=== PATIENT | female | born 1950 | race Two or more races ===

== ENCOUNTER 2017-12-04 18:24 | Emergency (ER) | payer OTHER | END 2017-12-04 19:47 | disposition home or self-care (01) | LOC: ER 18:24 | DX: K04.7 Periapical abscess without sinus (principal); Z88.5 Allergy status to narcotic agent | CPT/HCPCS: 99283 ==

== ENCOUNTER 2018-03-29 21:15 | Emergency (ER) | payer OTHER | END 2018-03-29 22:20 | disposition home or self-care (01) | LOC: ER 21:15 | DX: K04.7 Periapical abscess without sinus (principal) | CPT/HCPCS: 99283 ==

== ENCOUNTER 2019-07-30 01:30 | Inpatient (IN) | payer MEDICAID, OTHER ==
[~2019-07-30] VITALS: Ht 160 cm; Wt 67.1 kg
[~2019-07-30 01:30] MED LIST: AMOX500C PO; AMOX875T PO; ASPI-630 PO; BIMA2.5D EACHEYE; DIVA500T2 PO; DIVA500T4 PO; DOXY100C2 PO; HYDR-2145 PO; LANS30CA66 PO; MELO15TA6 PO; NADO20TA PO; NORT25CA PO; NORT25CA3 PO; NORT50CA PO; OXYC15TA PO; OXYC1TAB8 PO; PROP40TA PO
[2019-07-30 02:17] LABS: BASO # 0.1 x10^3/uL (0.0-0.2); BASO % 1 % (0-3); EOS # 0.1 x10^3/uL (0.0-0.7); EOS % 1 % (0-3); HEMATOCRIT 36.6 % (36.0-47.0); HEMOGLOBIN 12.4 g/dL (12.0-15.5); LYMPH # 1.7 x10^3/uL (1.0-4.8); LYMPH % 18 % (24-48); MEAN CORPUSCULAR HEMOGLOBIN 33 pg (25-35); MEAN CORPUSCULAR HGB CONC 34 g/dL (31-37); MEAN CORPUSCULAR VOLUME 97 fL (79-100); MONO # 0.5 x10^3/uL (0.0-1.1); MONO % 5 % (0-9); NEUT % 75 % (31-73); PLATELET COUNT 388 x10^3/uL (140-400); RED BLOOD COUNT 3.77 x10^6/uL (3.50-5.40); RED CELL DISTRIBUTION WIDTH 14.5 % (11.5-14.5); WHITE BLOOD COUNT 9.3 x10^3/uL (4.0-11.0)
[2019-07-30 02:27] LABS: CALCIUM 9.6 mg/dL (8.5-10.1); CREATININE 0.8 mg/dL (0.6-1.0); GFR 70.9; POTASSIUM 3.7 mmol/L (3.5-5.1)
[2019-07-30 02:31] LABS: ACETAMIN < 2 mcg/ml (10-30); ETHANOL < 10 mg/dL (0-10); SALIC < 2.8 mg/dL (2.8-20.0)
[2019-07-30 02:34] LABS: ALBUMIN 3.4 g/dL (3.4-5.0); ALBUMIN/GLOBULIN RATIO 0.8 (1.0-1.7); TOTAL BILIRUBIN 0.3 mg/dL (0.2-1.0); TOTAL PROTEIN 7.6 g/dL (6.4-8.2)
[2019-07-30 03:06] LABS: BILIRUBIN,URINE SMALL (NEG); CLARITY,URINE CLOUDY; COLOR,URINE YELLOW; NITRITE,URINE NEGATIVE (NEG); PROTEIN,URINE NEGATIVE (NEG-TRACE)
[2019-07-30 03:18] LABS: BACTERIA,URINE MODERATE /HPF (0-FEW); RBC,URINE 0 /HPF (0-2); SQUAMOUS EPITHELIAL CELL,UR FEW /LPF
[2019-07-30 03:35] LABS: BARBITURATES NEG (NEG); BENZODIAZEPINES NEG (NEG); CANNABINOIDS NEG (NEG); COCAINE NEG (NEG); METHADONE NEG (NEG); OPIATES POS (NEG); PHENCYCLIDINE NEG (NEG)
[2019-07-30 03:38] LABS: AMPHETAMINE/METHAMPHETAMINE NEG (NEG)
--- NOTE | 2019-07-30 05:47 | PHYS DOC ---
Past Medical History Past Medical History: Hypertension, Migraines Additional Past Medical Histor: RA,SPINAL STENOISIS,CARPELL DONN,CERVICALG IA,DYSHAGIA (KEL PATHAK Jr., DO) Past Surgical History: Other Additional Past Surgical Histo: BACK (KEL PATHAK Jr., DO) Alcohol Use: None Drug Use: None (KEL PATHAK Jr., DO) Adult General Chief Complaint Chief Complaint: OVERDOSE HPI HPI Patient is a 69-year-old female who presents after reportedly taking an overdose of her muscle relaxant. Patient states that she was trying to harm herself and has had thoughts of taking her life, stating that she doesn't want to live anymore because of chronic pain. She also indicates that she recently ran out of her oxycodone which is making her even more depressed. Family indicates that patient has been making similar comments regarding taking her life for a while now. Patient states that she took a total of 6 of her muscle relaxants and ad mits that she didn't think that it would cause any harm however.[] (KEL PATHAK Jr., DO) Review of Systems Review of Systems Constitutional: Denies fever or chills [] Respiratory: Denies cough or shortness of breath [] Cardiovascular: No additional information not addressed in HPI [] GI: Denies abdominal pain, nausea, vomiting or diarrhea [] Musculoskeletal: Complains of chronic back pain [] Neurologic: Denies headache, focal weakness or sensory changes [] Psychiatric: Admits to depression and suicidal ideation[] All other systems were reviewed and found to be within normal limits, except as documented in this note. (KEL PATHAK Jr., DO) Current Medications Current Medications Current Medications Medications (Trade) Dose Ordered Sig/Alisha Start Time Stop Time Status Last Admin Dose Admin Oxycodone/ Acetaminophen (Percocet 5/325) 1 tab 1X ONCE 07/30/19 11:00 07/30/19 11:01 DC 07/30/19 11:11 1 TAB (VÍCTOR JUÁREZ MD) Allergies Allergies Allergies Coded Allergies Type Severity Reaction Last Updated Verified No Known Drug Allergies 07/30/19 No (VÍCTOR JUÁREZ MD) Physical Exam Physical Exam Constitutional: Well developed, well nourished, no acute distress, non-toxic appearance. [] HENT: Normocephalic, atraumatic, bilateral external ears normal, oropharynx moist, no oral exudates, nose normal. [] Eyes: PERRLA, EOMI, conjunctiva normal, no discharge. [] Neck: Normal range of motion, no tenderness, supple, no stridor. [] Cardiovascular: Regular rate and rhythm[] Lungs & Thorax: Bilateral breath sounds clear to auscultation [] Abdomen: Bowel sounds normal, soft, no tenderness. [] Skin: Warm, dry, no erythema, no rash. [] Extremities: No tenderness, no cyanosis, no clubbing, ROM intact. [] Neurologic: Alert and oriented X 3, no focal deficits noted. [] Psychologic: Flattened affect with depressed mood. [] (KEL PATHAK Jr. DO) Current Patient Data Vital Signs Vital Signs Date Time Temp Pulse Resp B/P (MAP) Pulse Ox O2 Delivery O2 Flow Rate FiO2 07/30/19 17:28 60 13 111/66 (81) 96 Room Air 07/30/19 12:28 98.3 98.3 (VÍCTOR JUÁREZ MD) Lab Values Laboratory Tests Test 07/30/19 02:08 07/30/19 02:58 White Blood Count 9.3 x10^3/uL (4.0-11.0) Red Blood Count 3.77 x10^6/uL (3.50-5.40) Hemoglobin 12.4 g/dL (12.0-15.5) Hematocrit 36.6 % (36.0-47.0) Mean Corpuscular Volume 97 fL (79-100) Mean Corpuscular Hemoglobin 33 pg (25-35) Mean Corpuscular Hemoglobin Concent 34 g/dL (31-37) Red Cell Distribution Width 14.5 % (11.5-14.5) Platelet Count 388 x10^3/uL (140-400) Neutrophils (%) (Auto) 75 % (31-73) H Lymphocytes (%) (Auto) 18 % (24-48) L Monocytes (%) (Auto) 5 % (0-9) Eosinophils (%) (Auto) 1 % (0-3) Basophils (%) (Auto) 1 % (0-3) Neutrophils # (Auto) 7.0 x10^3/uL (1.8-7.7) Lymphocytes # (Auto) 1.7 x10^3/uL (1.0-4.8) Monocytes # (Auto) 0.5 x10^3/uL (0.0-1.1) Eosinophils # (Auto) 0.1 x10^3/uL (0.0-0.7) Basophils # (Auto) 0.1 x10^3/uL (0.0-0.2) Sodium Level 144 mmol/L (136-145) Potassium Level 3.7 mmol/L (3.5-5.1) Chloride Level 108 mmol/L (98-107) H Carbon Dioxide Level 27 mmol/L (21-32) Anion Gap 9 (6-14) Blood Urea Nitrogen 25 mg/dL (7-20) H Creatinine 0.8 mg/dL (0.6-1.0) Estimated GFR (Cockcroft-Gault) 70.9 BUN/Creatinine Ratio 31 (6-20) H Glucose Level 133 mg/dL (70-99) H Calcium Level 9.6 mg/dL (8.5-10.1) Total Bilirubin 0.3 mg/dL (0.2-1.0) Aspartate Amino Transferase (AST) 10 U/L (15-37) L Alanine Aminotransferase (ALT) 16 U/L (14-59) Alkaline Phosphatase 133 U/L (46-116) H Total Protein 7.6 g/dL (6.4-8.2) Albumin 3.4 g/dL (3.4-5.0) Albumin/Globulin Ratio 0.8 (1.0-1.7) L Salicylates Level < 2.8 mg/dL (2.8-20.0) L Salicylate Last Dose Date Unk Salicylate Last Dose Time Unk Acetaminophen Level < 2 mcg/ml (10-30) L Acetaminophen Last Dose Date Unk Acetaminophen Last Dose Time Unk Ethyl Alcohol Level < 10 mg/dL (0-10) Urine Collection Type Unknown Urine Color Yellow Urine Clarity Cloudy Urine pH 6.0 Urine Specific [place] 1.025 Urine Protein Negative mg/dL (NEG-TRACE) Urine Glucose (UA) Negative mg/dL (NEG) Urine Ketones (Stick) Trace mg/dL (NEG) Urine Blood Negative (NEG) Urine Nitrite Negative (NEG) Urine Bilirubin Small (NEG) Urine Urobilinogen Dipstick 1.0 mg/dL (0.2 mg/dL) Urine Leukocyte Esterase Small (NEG) Urine RBC 0 /HPF (0-2) Urine WBC 5-10 /HPF (0-4) Urine Squamous Epithelial Cells Few /LPF Urine Bacteria Moderate /HPF (0-FEW) Urine Mucus Mod /LPF Urine Opiates Screen Pos (NEG) Urine Methadone Screen Neg (NEG) Urine Barbiturates Neg (NEG) Urine Phencyclidine Screen Neg (NEG) Urine Amphetamine/Methamphetamine Neg (NEG) Urine Benzodiazepines Screen Neg (NEG) Urine Cocaine Screen Neg (NEG) Urine Cannabinoids Screen Neg (NEG) Urine Ethyl Alcohol Neg (NEG) Laboratory Tests 07/30/19 02:08 Laboratory Tests 07/30/19 02:08 (VÍCTOR JUÁREZ MD) EKG EKG [] (KEL PATHAK Jr., DO) Radiology/Procedures Radiology/Procedures [] (KEL PATHAK Jr., DO) Course & Med Decision Making Course & Med Decision Making Pertinent Labs and Imaging studies reviewed. (See chart for details) Patient moved to room upon arrival was evaluated by ER medical staff after which a mental health workup has been completed. Poison control was also contacted regarding overdose. Patient's mental health workup has returned and patient has been medically cleared for PAT consult. At this time, patient is agreeing to psychiatric admission and we are awaiting bed placement. Patient is being signed out to the oncoming ER physician, Dr. Juárez at 6:00 AM. (KEL PATHAK Jr., DO) Course & Med Decision Making Patient care transferred to ga at 0600. Patient was, and cooperative and asking for pain medication because of chronic pain. Patient was not a candidate for admission to [facility] mental units because of the insurance problem. There was not available geriatric mental bed in [facility]. Plan to admit patient for observation at this hospital and evaluation by PAT team tomorrow and deciding about placement. (VÍCTOR JUÁREZ MD) Dragon Disclaimer Dragon Disclaimer This electronic medical record was generated, in whole or in part, using a voice recognition dictation system. (KEL PATHAK Jr., DO) Departure Departure Impression: Primary Impression: Suicidal ideation Additional Impressions: Drug overdose, intentional Depression Chronic pain Disposition: 09 ADMITTED INPATIENT (at 1724) Admitting Physician: AMIE (Dr. Coon accepted admission at 1724) (VÍCTOR JUÁREZ MD) Condition: IMPROVED Referrals: NO PCP (PCP) Problem Qualifiers Additional Impressions: Drug overdose, intentional Encounter type: initial encounter Qualified Codes: T50.902A - Poisoning by unspecified drugs, medicaments and biological substances, intentional self-harm, initial encounter Depression Depression Type: unspecified Qualified Codes: F32.9 - Major depressive disorder, single episode, unspecified Chronic pain Chronic pain type: other chronic pain Qualified Codes: G89.29 - Other chronic pain KEL PATHAK Jr., DO Jul 30, 2019 05:47 VÍCTOR JUÁREZ MD Jul 30, 2019 17:48
[2019-07-30] MEDS ORDERED: oxyCODONE/APAP 5/325 1 TAB TABLET PO ONE ×2 (06:30→11:00)
[2019-07-30] MEDS ORDERED: oxyCODONE IR 5 MG TABLET PO PRN (18:45)
[2019-07-30] MEDS: oxyCODONE/APAP 10/325 1 TAB TABLET PO SCH (18:52)
[2019-07-30] MEDS ORDERED: DULO30CA2 PO (20:06)
[2019-07-30] MEDS ORDERED: PROP40TA PO (20:06)
[2019-07-30] MEDS ORDERED: TIZA4TAB2 PO (20:06)
[2019-07-30] MEDS ORDERED: OXYC1TAB22 PO (20:06)
[2019-07-30] MEDS ORDERED: POLY17PO29 PO (20:06)
[2019-07-30 20:14] VITALS: BP 139/77
--- NOTE | 2019-07-30 20:59 | NUR ---
Pt arrived to the unit at approximately after 1930 via gurney from the ED. Pt is currently being admitted as a SI with this RN as a 1:1 by bedside. Pt's room was checked and all extra equipment was removed from room based on SI protocol. Pt's belongings was checked and was placed in medication room. All questions and concerns regarding pt's POC was addressed and answered. Pt voiced that she was depressed and did wanted to end her life before being brought into the ED, but at this time, she have no interest in ending her life anymore. Pt is however still tearful when asked about her current concerns and medical conditions. Pt was made comfortable in bed. Will continue to monitor pt closely.
[2019-07-30] MEDS ORDERED: AMOXICILLIN PO SCH (21:00)
[2019-07-30] MEDS ORDERED: NORTRIPTYLINE 25 MG CAPSULE PO SCH (21:00)
[2019-07-30] MEDS ORDERED: NON FORMULARY ITEM (Doxycycline Hyclate 1 CAP) PO SCH (21:00)
[2019-07-30] MEDS ORDERED: NON FORMULARY ITEM (Amoxicillin 1 TAB) PO SCH (21:00)
[2019-07-30] MEDS: LATANOPROST 0.005% OPHTH SOLUTION 2.5ML BOTTLE. OU SCH (21:38)
[2019-07-30] MEDS: tiZANidine 4 MG TABLET. PO SCH (21:38)
[2019-07-30] MEDS: DIVALPROEX DELAYED RELEASE 500 MG TABLET.DR. PO SCH (21:38)
[2019-07-30] MEDS: PROPRANOLOL 40 MG TABLET. PO SCH (21:39)
[2019-07-30] MEDS: POLYETHYLENE GLYCOL 3350 17 GM PACKET. PO SCH (21:39)
--- NOTE | 2019-07-30 21:54 | HP ---
ADMIT DATE: 07/30/2019 CHIEF COMPLAINT: Overdose. HISTORY OF PRESENT ILLNESS: The patient is a pleasant 69-year-old female who took Zanaflex. She states she has been depressed because her back hurts. She apparently had back surgery at [place] facility [place] in [facility]. Since then, she has had worse pain. She states the one thing that seems to help is oxycodone, but she denies that she is dependent on it. She does not want to get high. She has associated weakness. I discussed the case with ER physician. She probably needs to be inpatient psych, but they would not take her currently. We are going to get her medically cleared. We are going to admit the patient, give her some p.r.n. pain meds and probably get her to a Psych Unit here in a day or two. PAST MEDICAL HISTORY: Hypertension, migraines, spinal surgery, carpal tunnel surgery, dysphagia, depression. ALLERGIES: None. FAMILY HISTORY: Diabetes. SOCIAL HISTORY: She does not drink, smoke or take drugs. MEDICATIONS: Reviewed, please refer to the MRAD. REVIEW OF SYSTEMS: GENERAL: No history of weight change, weakness or fevers. SKIN: No bruising, hair changes or rashes. EYES: No blurred, double or loss of vision. NOSE AND THROAT: No history of nosebleeds, hoarseness or sore throat. HEART: No history of palpitations, chest pain or shortness of breath on exertion. LUNGS: Denies cough, hemoptysis, wheezing or shortness of breath. GASTROINTESTINAL: Denies changes in appetite, nausea, vomiting, diarrhea or constipation. GENITOURINARY: No history of frequency, urgency, hesitancy or nocturia. NEUROLOGIC: Denies history of numbness, tingling, tremor or weakness. PSYCHIATRIC: She complains of depression. ENDOCRINE: No history of heat or cold intolerance, polyuria or polydipsia. EXTREMITIES: Denies muscle weakness, joint pain, pain on walking or stiffness. MUSCULOSKELETAL: She complains of back pain. PHYSICAL EXAMINATION: VITALS: Within normal limits and are stable. GENERAL: No apparent distress. Alert and oriented. HEENT: Head is normocephalic, atraumatic, pupils were equally round and reactive to light and accommodation. NECK: Supple, no JVD, no thyromegaly was noted. LUNGS: Clear to auscultation in all lung hansen without rhonchi or wheezing. HEART: RRR, S1, S2 present. Peripheral pulses intact, no obvious murmurs were noted. ABDOMEN: Soft, nontender. Positive bowel sounds no organomegaly, normal bowel sounds. EXTREMITIES: Without any cyanosis, clubbing, or edema. Pedal pulses intact, Homans sign is negative. NEUROLOGIC: Normal speech, normal tone. A and O x3, moves all extremities, no obvious focal deficits. PSYCHIATRIC: She seems depressed. SKIN: No ulcerations or rashes, good skin turgor, no jaundice. VASCULAR: Good capillary refill, neurovascular bundle appears to be intact. LABORATORY DATA: White count is 9. Electrolytes are normal. ASSESSMENT AND PLAN: Depression with ingestion of Zanaflex. Clinically, the patient is stable currently. We will go ahead and get most of her home meds going. Consult the psychiatric assessment team. PT, OT, DVT prophylaxis. Full code. VITOR ELIZABETH DO DR: BOLIVAR/eladio JOB#: [id number] / [id number]
[2019-07-30 22:45] VITALS: BP 144/75
[2019-07-31 07:00] VITALS: BP 116/56
[2019-07-31] MEDS: PANTOPRAZOLE 40 MG TABLET.DR. PO SCH (08:53)
[2019-07-31] MEDS: hydroCHLOROthiazide 25 MG TABLET PO SCH (08:54)
[2019-07-31] MEDS: PROPRANOLOL 40 MG TABLET. PO SCH ×2 (08:54→20:40)
[2019-07-31] MEDS: ASPIRIN CHEWABLE 81 MG TABLET. PO SCH (08:54)
[2019-07-31] MEDS: DULoxetine HCL 30 MG CAPSULE.DR PO SCH (08:54)
[2019-07-31] MEDS: oxyCODONE/APAP 10/325 1 TAB TABLET PO SCH ×4 (08:55→20:40)
[2019-07-31] MEDS: POLYETHYLENE GLYCOL 3350 17 GM PACKET. PO SCH ×3 (08:55→20:38)
[2019-07-31] MEDS ORDERED: MELOXICAM 7.5 MG TABLET PO PRN (09:00)
[2019-07-31] MEDS ORDERED: METOPROLOL TART IMMED RELEASE 25 MG TABLET. PO SCH (09:00)
[2019-07-31 11:00] VITALS: BP 101/54
--- NOTE | 2019-07-31 12:55 | PDOC ---
PROGRESS NOTES History of Present Illness History of Present Illness ASSESSMENT AND PLAN: Depression with ingestion of Zanaflex. chronic pain syndrome gait instability HIGH FALL RISK L4-5 there is severe central stenosis from a combination of facet arthropathy and disc protrusion. 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 s/p neck surgery with fusion on 04/27/2018. 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 Marked soft tissue swelling and edema are seen within the prevertebral soft tissues. 2018 07/31 STATES she has been very depressed, but will not try to harm herself again, just gave up hope that she will ever get better, and free of pain, rates her pain at 10/10 now. also notes neck pain with rom has tried gabapentin without relief LUMBAR SURGERY WAS DONE BY DR PADMINI KNOWLES IN 2018 PLAN home meds except narcotics, use sparingly psychiatric assessment team. has seen PT, OT, DVT prophylaxis. Full code. ESR, IF ELEVATED MAY NEED MRI C/S NOW id consult/// RE HX DISKITIS CONSULT DR MARY AGUILAR, DR SCHWARZ X-RAY L/S, CONSIDER MRI L/S continue cymbalta MAY NEED SNF REHAB NEED RECENT RECORDS, [facility] 40 MIN PT EXAM, CHART REVIEW, > 50% OF TIME SPENT WITH EXAM, CHART REVIEW, PT CARE COORDINATION Vitals Vitals Vital Signs Date Time Temp Pulse Resp B/P (MAP) Pulse Ox O2 Delivery O2 Flow Rate FiO2 07/31/19 11:00 97.9 63 16 101/54 (70) 96 Room Air 97.9 Physical Exam Physical Exam HEENT: Head is normocephalic, atraumatic, pupils were equally round and reactive to light and accommodation. NECK: Supple, no JVD, no thyromegaly was noted. LUNGS: Clear to auscultation in all lung hansen without rhonchi or wheezing. HEART: RRR, S1, S2 present. Peripheral pulses intact, no obvious murmurs were noted. ABDOMEN: Soft, nontender. Positive bowel sounds no organomegaly, normal bowel sounds. EXTREMITIES: Without any cyanosis, clubbing, or edema. Pedal pulses intact, Homans sign is negative. NEUROLOGIC: Normal speech, normal tone. A and O x3, moves all extremities with difficulty, no obvious focal deficits. PSYCHIATRIC: She seems depressed. tearful affect SKIN: No ulcerations or rashes, good skin turgor, no jaundice. VASCULAR: Good capillary refill, neurovascular bundle appears to be intact. General: Alert, Oriented X3, Cooperative, moderate distress Heart: Regular rate, Normal S1, Normal S2 Lungs: Clear Abdomen: Soft Extremities: No cyanosis, No edema Skin: Other (tender about l3l4 space paralumbar) Labs LABS MR LUMBAR SPINE HISTORY: Low back pain with left leg radiculopathy at COMPARISON: None available Technique: Sagittal T2, sagittal STIR, and sagittal T1-weighted images were obtained. Additional axial T1 and T2 weighted imaging was also performed. FINDINGS: There is grade 1 anterolisthesis of L4 on L5. Alignment is otherwise within normal limits. No compression deformities are identified. Bone marrow signal is within normal limits. The conus terminates normally at the level of L1. Visualized intra-abdominal contents demonstrates bilateral renal cysts. At L5-S1 there is moderate right and mild left facet hypertrophy. This causes mass effect upon the descending right S1 nerve. The neural foramina are maintained. At L4-5 there is grade 1 degenerative anterolisthesis with advanced bilateral facet arthropathy. There is associated ligamentum flavum thickening and a broad-based disc protrusion. This results in severe central spinal stenosis. The neural foramina are maintained. At L3-4 there is mild central spinal stenosis from facet arthropathy and a small disc bulge. At L2-3 there is mild central spinal narrowing from facet arthropathy. Impression: At L4-5 there is severe central stenosis from a combination of facet arthropathy and disc protrusion. At L5-S1 there is facet arthropathy worse on the right which results in abutment of the descending right S1 nerve. Other less severe degenerative changes as above. MRI of the cervical spine without and with contrast 06/02/2018 CLINICAL HISTORY: Chronic neck pain. History of cervical spine surgery. TECHNIQUE: Unenhanced T1-weighted, T2-weighted and inversion recovery sagittal and gradient echo, T2-weighted and T1-weighted axial images of the cervical spine were obtained. After the intravenous administration of 5 cc of Gadavist, enhanced T1-weighted sagittal and axial images of the cervical spine were obtained. FINDINGS: Comparison is made to patient's outside MRI of the cervical spine dated 04/30/2018. There is straightening of the normal cervical lordosis. The patient is post anterior fusion using what appears to be an anterior plate, bone screws and bone graft material at C4-5 and C5-6. Since the previous examination increased signal intensity has developed within the remaining discs on the T2-weighted and inversion recovery images. Decreased signal intensity is seen on the T1-weighted images involving the marrow of the C4, C5 and C6 vertebral bodies. This demonstrates increased signal intensity the inversion recovery images. Enhancement is seen throughout these areas. These findings are concerning for discitis/osteomyelitis. Marked soft tissue swelling within the prevertebral soft tissues is noted. There is associated edema. A fluid collection is seen extending from the right anterior neck to the prevertebral soft tissues anterior to the level of the fusion. This measures 4.4 x 4.4 x 3.3 cm in AP, craniocaudal and transverse dimensions. This appears to have increased in size since the previous examination and is concerning for an abscess. Abnormal soft tissue signal intensity is seen within the anterior and posterior epidural space centered at the C4-5 and C5-6 levels. This demonstrates increased signal intensity on the T2-weighted images and enhances with contrast. This is consistent most likely with epidural phlegmon. Superimposed abscess/abscesses are not excluded. This contributes to moderate central spinal canal stenosis with moderate cord impingement at C4-5 and moderate to severe left greater than right central spinal canal stenosis at C5-6 with moderate to severe left greater than right cord impingement. This enhancement extends along the posterior epidural space superiorly to the C2-3 level and contributes to mild to moderate central spinal canal stenosis with mild cord impingement at C3-4 and extends inferiorly within the anterior and posterior epidural space through the C7-T1 level contributing to mild central spinal canal stenosis without evidence of cord impingement at C6-7. No definite area of abnormal signal intensity is seen involving the cervical spinal cord. Degenerative changes are seen involving the uncovertebral and facet joints throughout the cervical disc spaces. These result in moderate left neural foraminal stenosis at C6-7. IMPRESSION: 1. Post anterior fusion at C4-5 and C5-6. 2. Findings are seen concerning for discitis/osteomyelitis at C4-5 and C5-6. Marked soft tissue swelling and edema are seen within the prevertebral soft tissues. A fluid collection is seen extending from the right anterior neck to the prevertebral soft tissues at the level of the patient's fusion. This measures 4.4 cm in greatest diameter. It has increased in size since the previous examination and is concerning for an abscess. Abnormal soft tissue signal intensity is seen within the anterior and posterior epidural space centered at C4-5 and C5-6 which enhances with contrast. It is consistent most likely with epidural phlegmon. Superimposed abscess/abscesses are not excluded. This contributes to moderate central spinal canal stenosis with moderate cord impingement at C4-5 and moderate to severe left greater than right central spinal canal stenosis with moderate to severe left greater than right cord impingement at C5-6. This extends to the posterior epidural space superiorly at C2-3 and contributes to mild to moderate central spinal canal stenosis with mild cord impingement at C3-4 and extends inferiorly through the C7-T1 level contributing to mild central spinal canal stenosis without evidence of cord impingement at C6-7. These findings were discussed with the patient's nurse. Electronically signed by: Joseph Lynch MD (06/02/2018 2:58 PM) [id number] DICTATED and SIGNED BY: JOSEPH LYNCH MD DATE: 06/02/18 141 Assessment and Plan Assessmemt and Plan Problems Medical Problems: (1) Chronic pain Status: Acute (2) Depression Status: Acute (3) Drug overdose, intentional Status: Acute (4) Suicidal ideation Status: Acute * Discussion Factors Facilitating Goal Achievement * Motivation level * Prior level of function * Cognition * Response to training Problem List * Balance * Functional Mobility * ADL Status * Pain Pt/caregiver agree with plan of care * Yes Patient condition at conclusion of therapy * Pt in chair * Call light in reach * Phone in reach * PtIn no apparent distress * Pt denies further needs * RN/CLOTH CUTTER with patient Communicated Patient Care With (Name, Title) * JIE Chinchilla/Marcelina, PT Goal 1: Pt will tolerate functional activities for * 20min Goal 1 Position: * Seated * Standing Goal 2: Pt will be able to complete: * LE dressing w/ devices prn Goal 2 Equipment: * Long Handled Equipment Goal 2 Required Assistance Level * Independent Goal 3: Pt will be able to complete: * toilet transfer Goal 3 Required Assistance Level * Independent Goal 4 - Pt will be able to complete: * grooming at sink Goal 4 Equipment * Front Wheeled Walker Goal 4 Required Assistance Level * Independent Goal 5 - Pt. will be able to complete: * UE HEP as tolerates Goal 5 Required Assistance Level * Independent Goal 6 * Object retrieval safely w/ reachers and RW w/ supervision. Skilled interventions required to achieve goals * Activity roque. training * ADL training/education * Adaptive equip. training * Body mechanics training * Compensatory techniques * Functional mobility train * IADL Training * Transfer training for ADL Number of Days/Weeks for length of Stay, or Until Goals Met * 6x wk/2wks Discharge Recommendations * Home with Assistance * Home with Home Health Discharge Recommendation Comments * AD to be assessed, upgrade dc plan w/ progress Comment Review of Relevant I have reviewed the following items madiha (where applicable) has been applied. Labs Laboratory Tests Test 07/30/19 02:08 07/30/19 02:58 White Blood Count 9.3 x10^3/uL (4.0-11.0) Red Blood Count 3.77 x10^6/uL (3.50-5.40) Hemoglobin 12.4 g/dL (12.0-15.5) Hematocrit 36.6 % (36.0-47.0) Mean Corpuscular Volume 97 fL (79-100) Mean Corpuscular Hemoglobin 33 pg (25-35) Mean Corpuscular Hemoglobin Concent 34 g/dL (31-37) Red Cell Distribution Width 14.5 % (11.5-14.5) Platelet Count 388 x10^3/uL (140-400) Neutrophils (%) (Auto) 75 % (31-73) Lymphocytes (%) (Auto) 18 % (24-48) Monocytes (%) (Auto) 5 % (0-9) Eosinophils (%) (Auto) 1 % (0-3) Basophils (%) (Auto) 1 % (0-3) Neutrophils # (Auto) 7.0 x10^3/uL (1.8-7.7) Lymphocytes # (Auto) 1.7 x10^3/uL (1.0-4.8) Monocytes # (Auto) 0.5 x10^3/uL (0.0-1.1) Eosinophils # (Auto) 0.1 x10^3/uL (0.0-0.7) Basophils # (Auto) 0.1 x10^3/uL (0.0-0.2) Sodium Level 144 mmol/L (136-145) Potassium Level 3.7 mmol/L (3.5-5.1) Chloride Level 108 mmol/L (98-107) Carbon Dioxide Level 27 mmol/L (21-32) Anion Gap 9 (6-14) Blood Urea Nitrogen 25 mg/dL (7-20) Creatinine 0.8 mg/dL (0.6-1.0) Estimated GFR (Cockcroft-Gault) 70.9 BUN/Creatinine Ratio 31 (6-20) Glucose Level 133 mg/dL (70-99) Calcium Level 9.6 mg/dL (8.5-10.1) Total Bilirubin 0.3 mg/dL (0.2-1.0) Aspartate Amino Transf (AST/SGOT) 10 U/L (15-37) Alanine Aminotransferase (ALT/SGPT) 16 U/L (14-59) Alkaline Phosphatase 133 U/L (46-116) Total Protein 7.6 g/dL (6.4-8.2) Albumin 3.4 g/dL (3.4-5.0) Albumin/Globulin Ratio 0.8 (1.0-1.7) Salicylates Level < 2.8 mg/dL (2.8-20.0) Salicylate Last Dose Date Unk Salicylate Last Dose Time Unk Acetaminophen Level < 2 mcg/ml (10-30) Acetaminophen Last Dose Date Unk Acetaminophen Last Dose Time Unk Ethyl Alcohol Level < 10 mg/dL (0-10) Urine Collection Type Unknown Urine Color Yellow Urine Clarity Cloudy Urine pH 6.0 Urine Specific Buhl 1.025 Urine Protein Negative mg/dL (NEG-TRACE) Urine Glucose (UA) Negative mg/dL (NEG) Urine Ketones (Stick) Trace mg/dL (NEG) Urine Blood Negative (NEG) Urine Nitrite Negative (NEG) Urine Bilirubin Small (NEG) Urine Urobilinogen Dipstick 1.0 mg/dL (0.2 mg/dL) Urine Leukocyte Esterase Small (NEG) Urine RBC 0 /HPF (0-2) Urine WBC 5-10 /HPF (0-4) Urine Squamous Epithelial Cells Few /LPF Urine Bacteria Moderate /HPF (0-FEW) Urine Mucus Mod /LPF Urine Opiates Screen Pos (NEG) Urine Methadone Screen Neg (NEG) Urine Barbiturates Neg (NEG) Urine Phencyclidine Screen Neg (NEG) Urine Amphetamine/Methamphetamine Neg (NEG) Urine Benzodiazepines Screen Neg (NEG) Urine Cocaine Screen Neg (NEG) Urine Cannabinoids Screen Neg (NEG) Urine Ethyl Alcohol Neg (NEG) Medications Current Medications Oxycodone/ Acetaminophen (Percocet 5/325) 1 tab 1X ONCE PO Last administered on 07/30/19at 06:19; Start 07/30/19 at 06:30; Stop 07/30/19 at 06:31; Status DC Oxycodone/ Acetaminophen (Percocet 5/325) 1 tab 1X ONCE PO Last administered on 07/30/19at 11:11; Start 07/30/19 at 11:00; Stop 07/30/19 at 11:01; Status DC Oxycodone/ Acetaminophen (Percocet 10/325) 1 tab QID PO Last administered on 07/31/19at 08:59; Start 07/30/19 at 18:49 Aspirin (Children'S Aspirin) 81 mg DAILY PO Last administered on 07/31/19at 08:59; Start 07/31/19 at 09:00 Divalproex Sodium (Depakote) 500 mg HS PO Last administered on 07/30/19at 21:39; Start 07/30/19 at 21:00 Hydrochlorothiazide (Hydrodiuril) 25 mg DAILY PO Last administered on 07/31/19at 08:59; Start 07/31/19 at 09:00 Non-Formulary Medication (Amoxicillin ) 1 cap TID PO ; Start 07/30/19 at 21:00; Stop 07/30/19 at 19:13; Status DC Non-Formulary Medication (Amoxicillin ) 1 tab BID PO ; Start 07/30/19 at 21:00; Stop 07/30/19 at 19:13; Status DC Latanoprost (Xalatan) 1 drop QHS OU Last administered on 07/30/19at 21:39; Start 07/30/19 at 21:00 Non-Formulary Medication (Doxycycline Hyclate ) 1 cap BID PO ; Start 07/30/19 at 21:00; Stop 07/30/19 at 19:13; Status DC Pantoprazole Sodium (Protonix) 40 mg DAILYAC PO Last administered on 07/31/19at 08:59; Start 07/31/19 at 07:30 Meloxicam (Mobic) 15 mg PRN DAILY PRN PO INFLAMMATION; Start 07/31/19 at 09:00 Metoprolol Tartrate (Lopressor) 25 mg BID PO ; Start 07/31/19 at 09:00; Stop 07/30/19 at 21:25; Status DC Nortriptyline HCl (Pamelor) 50 mg QHS PO ; Start 07/30/19 at 21:00; Stop 07/30/19 at 21:23; Status DC Oxycodone HCl (Roxicodone) 15 mg PRN QID PRN PO PAIN; Start 07/30/19 at 18:45; Stop 07/30/19 at 18:50; Status DC Duloxetine HCl (Cymbalta) 30 mg DAILY PO Last administered on 07/31/19at 08:59; Start 07/31/19 at 09:00 Polyethylene Glycol (miraLAX PACKET) 17 gm TID PO Last administered on 07/31/19at 08:59; Start 07/30/19 at 22:00 Propranolol HCl (Inderal) 40 mg BID PO Last administered on 07/31/19at 08:59; Start 07/30/19 at 22:00 Tizanidine HCl (Zanaflex) 2 mg HS PO Last administered on 07/30/19at 21:39; Start 07/30/19 at 22:00 Active Scripts Active Reported Percocet 10-325 Mg Tablet (Oxycodone/Acetaminophen) 1 Each Tablet 1 Tab PO 6- 8HRS Tizanidine Hcl 4 Mg Tablet 2 Mg PO HS Miralax (Polyethylene Glycol 3350) 17 Gm Powd.pack 1 Packet PO TID Cymbalta (Duloxetine Hcl) 30 Mg Capsule.dr 30 Mg PO DAILY Propranolol Hcl 40 Mg Tablet 1 Tab PO BID Aspirin 81 Mg Tab.chew 1 Tab PO DAILY Depakote (Divalproex Sodium) 500 Mg Tablet.dr 500 Mg PO HS Lumigan (Bimatoprost) 2.5 Ml Drops 1 Drop EACHEYE QHS Hydrochlorothiazide Tablet (Hydrochlorothiazide) 25 Mg Tablet 1 Tab PO DAILY Mobic (Meloxicam) 15 Mg Tablet 1 Tab PO PRN DAILY Vitals/I & O Vital Sign - Last 24 Hours 07/30/19 07/30/19 07/30/19 07/30/19 13:28 14:28 15:28 16:28 Pulse 81 61 68 80 Resp 17 18 21 24 B/P (MAP) 122/60 (80) 150/56 (87) 131/68 (89) 140/67 (91) Pulse Ox 94 94 94 97 O2 Delivery Room Air Room Air Room Air Room Air 07/30/19 07/30/19 07/30/19 07/30/19 17:28 18:28 20:00 20:14 Temp 98.0 98.0 Pulse 60 86 93 Resp 13 17 18 B/P (MAP) 111/66 (81) 130/74 (92) 139/77 (97) Pulse Ox 96 98 95 O2 Delivery Room Air Room Air Room Air Room Air 07/30/19 07/30/19 07/30/19 07/31/19 20:17 21:39 22:45 02:58 Temp 97.6 97.6 Pulse 93 75 Resp 18 B/P (MAP) 139/77 144/75 (98) Pulse Ox 95 95 O2 Delivery Room Air Room Air 07/31/19 07/31/19 07/31/19 07/31/19 07:00 08:59 08:59 11:00 Temp 98.4 97.9 98.4 97.9 Pulse 69 69 63 Resp 18 20 16 B/P (MAP) 116/56 (76) 116/56 101/54 (70) Pulse Ox 93 93 96 O2 Delivery Room Air Room Air Room Air Intake and Output 07/30/19 07/30/19 07/31/19 14:59 22:59 06:59 Intake Total 60 ml Balance 60 ml AARON MAR MD Jul 31, 2019 12:55
[2019-07-31] MEDS ORDERED: ONDANSETRON PF 4 MG/2 ML VIAL. IV PRN (13:45)
[2019-07-31] MEDS ORDERED: cloNIDine HCL 0.1 MG TABLET PO PRN (13:45)
[2019-07-31] MEDS ORDERED: 0.9 % SODIUM CHLORIDE 10 ML DISP.SYRIN. IV PRN (13:45)
[2019-07-31] MEDS ORDERED: guaiFENesin ORAL 200 MG/10 ML LIQUID. PO PRN (13:45)
[2019-07-31] MEDS ORDERED: DOCUSATE SODIUM 100 MG CAPSULE. PO PRN (13:45)
[2019-07-31] MEDS ORDERED: ALBUTEROL SULFATE 2.5 MG/3 ML NEBU. NEB PRN (13:45)
[2019-07-31] MEDS ORDERED: ACETAMINOPHEN 325 MG TABLET. PO PRN (13:45)
[2019-07-31] MEDS ORDERED: MAG HYDROX/ALUMINUM HYD/SIMETH 30 ML ORAL.SUSP PO PRN (13:45)
[2019-07-31] MEDS ORDERED: HYDROmorphone 2 MG/ML VIAL IV PRN (13:45)
[2019-07-31] MEDS: LIDOCAINE (700MG/PATCH) PATCH. TD SCH (14:17)
[2019-07-31 15:00] VITALS: BP 112/50
[2019-07-31] MEDS ORDERED: cefTRIAXone IV Push 1 GM VIAL. IVP SCH (15:00)
--- NOTE | 2019-07-31 15:22 | RAD ---
Examination: C-SPINE COMPLETE W/ FLEX/EXT History: Severe pain Comparison/Correlation: 06/02/2018 MRI cervical spine without contrast Findings: Total of 7 images of the cervical spine were obtained. This includes flexion and extension imaging. Postoperative cervical spine fusion with plate and associated screws are present from C4 through C7 noted. Intervertebral disc spacer Rashawn noted at these levels. Neural foramina are patent although narrowing at C3-4 is evident on the left. Alignment of cervical spine is normal on flexion and extension imaging. Slight reversal cervical lordosis is evident on flexion, extension, neutral positions. Degenerative changes of facet joints noted. Impression: Postoperative findings. Normal alignment. No suspicious acute process. Electronically signed by: Owen Smith MD (07/31/2019 3:19 PM) [facility]
--- NOTE | 2019-07-31 15:24 | RAD ---
Examination: LUMBAR SPINE MIN 4V History: Severe low back pain Comparison/Correlation: None Findings: Total of 5 images of the lumbar spine were obtained. Surgical clips involve the right and left upper quadrants. Postoperative lumbar spine fusion at L4 S5 is noted. Intervertebral disc spacer material at this level also seen. Narrowing of L2-3 disc space is evident. Vertebral body heights at L4-L5 are somewhat less than expected. Vertebral body heights are otherwise unremarkable. Osteopenia noted. Facet joint degenerative changes of the lumbar spine noted vascular calcifications are evident. Impression: Postoperative findings. No acute process. Electronically signed by: Owen Smith MD (07/31/2019 3:21 PM) [facility]
[2019-07-31] MEDS: IV NORMAL SALINE 1000ML BAG 1,000 ML IV SCH (16:58)
[2019-07-31 19:00] VITALS: BP 108/55
[2019-07-31] MEDS: tiZANidine 4 MG TABLET. PO SCH (20:40)
[2019-07-31] MEDS: DIVALPROEX DELAYED RELEASE 500 MG TABLET.DR. PO SCH (20:41)
[2019-07-31] MEDS: LATANOPROST 0.005% OPHTH SOLUTION 2.5ML BOTTLE. OU SCH (20:41)
[2019-07-31] MEDS: PATCH REMOVAL. MC SCH (21:00)
[2019-07-31 23:00] VITALS: BP 79/44
[2019-08-01] MEDS: IV NORMAL SALINE 1000ML BAG 1,000 ML IV SCH (02:00)
[2019-08-01 03:05] VITALS: BP 112/59
[2019-08-01 07:00] VITALS: BP 111/56
[2019-08-01] MEDS ORDERED: LIDO700A21 TD (08:26)
[2019-08-01] MEDS ORDERED: OXYC1TAB22 PO (08:26)
--- NOTE | 2019-08-01 08:27 | SNU/HH DC ---
DISCHARGE WITH HOME HEALTH DISCHARGE INFORMATION: Discharge Date: Aug 01, 2019 Final Diagnosis: Problems Medical Problems: (1) Chronic pain Status: Acute (2) Depression Status: Acute (3) Drug overdose, intentional Status: Acute (4) Suicidal ideation Status: Acute Condition on Discharge: Stable CODE STATUS: Code Status: Full HOME HEALTH: Face to Face: I certify this patient is under my care and that I, or a nurse practitioner or physician's human resources assistant working with me, had a face to face encounter that meets the physician face to face encounter requirements with this patient on []. RN For Eval/Treatment: Yes Physical Therapy For: Evalulation/Treatment Occupational Therapy For: Evaluation/Treatment Home Health Aide For: Self-care MACHINE CAGE MAKER For: Community Resources Pt Meets Homebound Status: Frequent falls w/ injury POST DISCHARGE ORDERS: DIET AFTER DISCHARGE: Regular CHECKS AFTER DISCHARGE: Checks after discharge: Check blood press - daily FOLLOW-UP: PCP to follow Home Health: has severe back pain, back sx or pathology in past -attempted to take too much zanaflex bec of it TREATMENT/EQUIPMENT ORDERS: Adaptive Equipment Issued: Front wheeled walker CERTIFICATION STATEMENT: Certification Statement: Certification Statement: Based on the above finding, I certify that this patient is confined to the home and needs intermittent group home care, physical therapy and/or speech therapy, or continues to need occupational therapy.~ This patient is under my care, and I have initiated the establishment of the plan of care.~ This patient will be followed by myself or a community physician who will periodically review the plan of care. Home Meds Active Scripts Lidocaine (Lidocaine PATCH ) 1 Each Adh..patch, 1 PATCH TD DAILY for back apin, #14 PATCH Prov:GARY LOPEZ MD 08/01/19 Oxycodone/Apap 10-325 (PERCOCET 10-325 MG TABLET ) 1 Each Tablet, 1 TAB PO 6- 8hrs for pain, #20 TAB 0 Refills Prov:GARY LOPEZ MD 08/01/19 Reported Medications Polyethylene Glycol 3350 (MIRALAX) 17 Gm Powd.pack, 1 PACKET PO TID for stool softener, #30 PACKET 3 Refills 07/30/19 Duloxetine Hcl (CYMBALTA) 30 Mg Capsule.dr, 30 MG PO DAILY for nerve pain , CAP 9/13/19 Propranolol Hcl (PROPRANOLOL HCL) 40 Mg Tablet, 1 TAB PO BID for htn, #60 TAB 5 Refills 07/30/19 Aspirin (ASPIRIN) 81 Mg Tab.chew, 1 TAB PO DAILY, #30 TAB 3 Refills 06/01/18 Divalproex Sodium (DEPAKOTE) 500 Mg Tablet.dr, 500 MG PO HS, TAB 06/01/18 Bimatoprost (LUMIGAN) 2.5 Ml Drops, 1 DROP EACHEYE QHS, #7.5 ML 3 Refills 06/01/18 Hydrochlorothiazide (HYDROCHLOROTHIAZIDE TABLET ) 25 Mg Tablet, 1 TAB PO DAILY, #30 TAB 5 Refills 06/01/18 Meloxicam (MOBIC) 15 Mg Tablet, 1 TAB PO PRN DAILY, #30 TAB 1 Refill 11/03/14 Discontinued Reported Medications Tizanidine Hcl (TIZANIDINE HCL) 4 Mg Tablet, 2 MG PO HS for muscle relaxant, TAB 07/30/19 Nortriptyline Hcl (NORTRIPTYLINE HCL) 50 Mg Capsule, 50 MG PO QHS, CAP 06/01/18 Oxycodone Hcl (OXYCODONE HCL IMMED.RELEASE) 15 Mg Tablet, 1 TAB PO QID PRN for PAIN, #120 TAB 06/01/18 Doxycycline Hyclate (DOXYCYCLINE HYCLATE) 100 Mg Capsule, 1 CAP PO BID, #14 CAP 06/01/18 Oxycodone Hcl/Acetaminophen (OXYCODON-ACETAMINOPHEN 7.5-325) 1 Each Tablet, 1 EACH PO Q4HRS PRN 01/19/14 Lansoprazole (PREVACID) 30 Mg Capsule.dr, 30 MG PO DAILY 01/19/14 Nadolol (NADOLOL) 20 Mg Tablet, 20 MG PO DAILY 01/19/14 GARY LOPEZ MD Aug 01, 2019 08:27
[2019-08-01 08:39] LABS: BASO # 0.1 x10^3/uL (0.0-0.2); BASO % 1 % (0-3); EOS # 0.1 x10^3/uL (0.0-0.7); EOS % 2 % (0-3); HEMOGLOBIN 11.8 g/dL (12.0-15.5); LYMPH # 1.8 x10^3/uL (1.0-4.8); LYMPH % 24 % (24-48); MEAN CORPUSCULAR HEMOGLOBIN 33 pg (25-35); MEAN CORPUSCULAR HGB CONC 34 g/dL (31-37); MEAN CORPUSCULAR VOLUME 97 fL (79-100); MONO # 0.6 x10^3/uL (0.0-1.1); MONO % 7 % (0-9); NEUT % 66 % (31-73); PLATELET COUNT 379 x10^3/uL (140-400); RED BLOOD COUNT 3.61 x10^6/uL (3.50-5.40); RED CELL DISTRIBUTION WIDTH 14.1 % (11.5-14.5); WHITE BLOOD COUNT 7.6 x10^3/uL (4.0-11.0)
[2019-08-01] MEDS ORDERED: ENOXAPARIN 40 MG/0.4 ML SYRINGE. SQ SCH (09:00)
[2019-08-01] MEDS: hydroCHLOROthiazide 25 MG TABLET PO SCH (09:10)
[2019-08-01] MEDS: oxyCODONE/APAP 10/325 1 TAB TABLET PO SCH ×4 (09:10→20:50)
[2019-08-01] MEDS: PROPRANOLOL 40 MG TABLET. PO SCH ×2 (09:10→20:56)
[2019-08-01] MEDS: ASPIRIN CHEWABLE 81 MG TABLET. PO SCH (09:11)
[2019-08-01] MEDS: LIDOCAINE (700MG/PATCH) PATCH. TD SCH (09:11)
[2019-08-01] MEDS: DULoxetine HCL 30 MG CAPSULE.DR PO SCH (09:11)
[2019-08-01] MEDS: POLYETHYLENE GLYCOL 3350 17 GM PACKET. PO SCH ×3 (09:11→20:49)
[2019-08-01] MEDS: PANTOPRAZOLE 40 MG TABLET.DR. PO SCH (09:11)
[2019-08-01 09:13] LABS: ALBUMIN 3.1 g/dL (3.4-5.0); ALBUMIN/GLOBULIN RATIO 0.9 (1.0-1.7); CALCIUM 8.8 mg/dL (8.5-10.1); CREATININE 0.7 mg/dL (0.6-1.0); GFR 82.7; TOTAL BILIRUBIN 0.3 mg/dL (0.2-1.0); TOTAL PROTEIN 6.7 g/dL (6.4-8.2)
--- NOTE | 2019-08-01 09:32 | PDOC ---
PROGRESS NOTES Chief Complaint Chief Complaint Depression with ingestion of Zanaflex. chronic pain syndrome gait instability HIGH FALL RISK L4-5 there is severe central stenosis from a combination of facet arthropathy and disc protrusion. 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 s/p neck surgery with fusion on 04/27/2018. 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 Marked soft tissue swelling and edema are seen within the prevertebral soft tissues. 2018 History of Present Illness History of Present Illness she overdosed on zanaflex (6 pills) bec of severe back pain Xrays: shows normal post op findings [facility] p[facility] rec[facility], she has family at home with her Physiatry has yet to see She has lidoderm patch now to back Also mentions severe headaches, has been on depakote for yrs - known to Dr crenshaw, mentioned botox injections to help pain Cleared by PAT team yesterday friday PLAN: NSAID to help headache if not yet on Await physiatry and neuro consults PT.OT HH on dc target tnr - dw JIE yoon COnt lidoderm patch DC zanaflex - she OD'd on this cont reg diet Vitals Vitals Vital Signs Date Time Temp Pulse Resp B/P (MAP) Pulse Ox O2 Delivery O2 Flow Rate FiO2 08/01/19 09:17 68 111/56 08/01/19 09:17 19 93 Room Air 08/01/19 07:00 98.0 98.0 Physical Exam Physical Exam HEENT: Head is normocephalic, atraumatic, pupils were equally round and reactive to light and accommodation. NECK: Supple, no JVD, no thyromegaly was noted. LUNGS: Clear to auscultation in all lung hansen without rhonchi or wheezing. HEART: RRR, S1, S2 present. Peripheral pulses intact, no obvious murmurs were noted. ABDOMEN: Soft, nontender. Positive bowel sounds no organomegaly, normal bowel sounds. EXTREMITIES: Without any cyanosis, clubbing, or edema. Pedal pulses intact, Homans sign is negative. NEUROLOGIC: Normal speech, normal tone. A and O x3, moves all extremities with difficulty, no obvious focal deficits. PSYCHIATRIC: She seems depressed. tearful affect SKIN: No ulcerations or rashes, good skin turgor, no jaundice. VASCULAR: Good capillary refill, neurovascular bundle appears to be intact. General: Alert, Oriented X3, Cooperative, moderate distress Heart: Regular rate, Normal S1, Normal S2 Lungs: Clear Abdomen: Soft Extremities: No cyanosis, No edema Skin: Other (tender about l3l4 space paralumbar) Labs LABS Laboratory Tests Test 07/31/19 15:28 08/01/19 07:45 Erythrocyte Sedimentation Rate 34 (0-25) White Blood Count 7.6 x10^3/uL (4.0-11.0) Red Blood Count 3.61 x10^6/uL (3.50-5.40) Hemoglobin 11.8 g/dL (12.0-15.5) Hematocrit 35.0 % (36.0-47.0) Mean Corpuscular Volume 97 fL (79-100) Mean Corpuscular Hemoglobin 33 pg (25-35) Mean Corpuscular Hemoglobin Concent 34 g/dL (31-37) Red Cell Distribution Width 14.1 % (11.5-14.5) Platelet Count 379 x10^3/uL (140-400) Neutrophils (%) (Auto) 66 % (31-73) Lymphocytes (%) (Auto) 24 % (24-48) Monocytes (%) (Auto) 7 % (0-9) Eosinophils (%) (Auto) 2 % (0-3) Basophils (%) (Auto) 1 % (0-3) Neutrophils # (Auto) 5.0 x10^3/uL (1.8-7.7) Lymphocytes # (Auto) 1.8 x10^3/uL (1.0-4.8) Monocytes # (Auto) 0.6 x10^3/uL (0.0-1.1) Eosinophils # (Auto) 0.1 x10^3/uL (0.0-0.7) Basophils # (Auto) 0.1 x10^3/uL (0.0-0.2) Sodium Level 147 mmol/L (136-145) Potassium Level 4.0 mmol/L (3.5-5.1) Chloride Level 110 mmol/L (98-107) Carbon Dioxide Level 30 mmol/L (21-32) Anion Gap 7 (6-14) Blood Urea Nitrogen 22 mg/dL (7-20) Creatinine 0.7 mg/dL (0.6-1.0) Estimated GFR (Cockcroft-Gault) 82.7 BUN/Creatinine Ratio 31 (6-20) Glucose Level 80 mg/dL (70-99) Calcium Level 8.8 mg/dL (8.5-10.1) Total Bilirubin 0.3 mg/dL (0.2-1.0) Aspartate Amino Transf (AST/SGOT) 12 U/L (15-37) Alanine Aminotransferase (ALT/SGPT) 15 U/L (14-59) Alkaline Phosphatase 116 U/L (46-116) Total Protein 6.7 g/dL (6.4-8.2) Albumin 3.1 g/dL (3.4-5.0) Albumin/Globulin Ratio 0.9 (1.0-1.7) Review of Systems Review of Systems back pain, depressed, not actively suicidal, no cp, soa, abd pain, n,v,d Assessment and Plan Assessmemt and Plan Problems Medical Problems: (1) Chronic pain Status: Acute (2) Depression Status: Acute (3) Drug overdose, intentional Status: Acute (4) Suicidal ideation Status: Acute Comment Review of Relevant I have reviewed the following items madiha (where applicable) has been applied. Labs Laboratory Tests Test 07/31/19 02:00 07/31/19 15:28 08/01/19 07:45 Thyroid Stimulating Hormone (TSH) 1.504 uIU/mL (0.358-3.74) Erythrocyte Sedimentation Rate 34 (0-25) White Blood Count 7.6 x10^3/uL (4.0-11.0) Red Blood Count 3.61 x10^6/uL (3.50-5.40) Hemoglobin 11.8 g/dL (12.0-15.5) Hematocrit 35.0 % (36.0-47.0) Mean Corpuscular Volume 97 fL (79-100) Mean Corpuscular Hemoglobin 33 pg (25-35) Mean Corpuscular Hemoglobin Concent 34 g/dL (31-37) Red Cell Distribution Width 14.1 % (11.5-14.5) Platelet Count 379 x10^3/uL (140-400) Neutrophils (%) (Auto) 66 % (31-73) Lymphocytes (%) (Auto) 24 % (24-48) Monocytes (%) (Auto) 7 % (0-9) Eosinophils (%) (Auto) 2 % (0-3) Basophils (%) (Auto) 1 % (0-3) Neutrophils # (Auto) 5.0 x10^3/uL (1.8-7.7) Lymphocytes # (Auto) 1.8 x10^3/uL (1.0-4.8) Monocytes # (Auto) 0.6 x10^3/uL (0.0-1.1) Eosinophils # (Auto) 0.1 x10^3/uL (0.0-0.7) Basophils # (Auto) 0.1 x10^3/uL (0.0-0.2) Sodium Level 147 mmol/L (136-145) Potassium Level 4.0 mmol/L (3.5-5.1) Chloride Level 110 mmol/L (98-107) Carbon Dioxide Level 30 mmol/L (21-32) Anion Gap 7 (6-14) Blood Urea Nitrogen 22 mg/dL (7-20) Creatinine 0.7 mg/dL (0.6-1.0) Estimated GFR (Cockcroft-Gault) 82.7 BUN/Creatinine Ratio 31 (6-20) Glucose Level 80 mg/dL (70-99) Calcium Level 8.8 mg/dL (8.5-10.1) Total Bilirubin 0.3 mg/dL (0.2-1.0) Aspartate Amino Transf (AST/SGOT) 12 U/L (15-37) Alanine Aminotransferase (ALT/SGPT) 15 U/L (14-59) Alkaline Phosphatase 116 U/L (46-116) Total Protein 6.7 g/dL (6.4-8.2) Albumin 3.1 g/dL (3.4-5.0) Albumin/Globulin Ratio 0.9 (1.0-1.7) Laboratory Tests Test 07/31/19 15:28 08/01/19 07:45 Erythrocyte Sedimentation Rate 34 (0-25) White Blood Count 7.6 x10^3/uL (4.0-11.0) Red Blood Count 3.61 x10^6/uL (3.50-5.40) Hemoglobin 11.8 g/dL (12.0-15.5) Hematocrit 35.0 % (36.0-47.0) Mean Corpuscular Volume 97 fL (79-100) Mean Corpuscular Hemoglobin 33 pg (25-35) Mean Corpuscular Hemoglobin Concent 34 g/dL (31-37) Red Cell Distribution Width 14.1 % (11.5-14.5) Platelet Count 379 x10^3/uL (140-400) Neutrophils (%) (Auto) 66 % (31-73) Lymphocytes (%) (Auto) 24 % (24-48) Monocytes (%) (Auto) 7 % (0-9) Eosinophils (%) (Auto) 2 % (0-3) Basophils (%) (Auto) 1 % (0-3) Neutrophils # (Auto) 5.0 x10^3/uL (1.8-7.7) Lymphocytes # (Auto) 1.8 x10^3/uL (1.0-4.8) Monocytes # (Auto) 0.6 x10^3/uL (0.0-1.1) Eosinophils # (Auto) 0.1 x10^3/uL (0.0-0.7) Basophils # (Auto) 0.1 x10^3/uL (0.0-0.2) Sodium Level 147 mmol/L (136-145) Potassium Level 4.0 mmol/L (3.5-5.1) Chloride Level 110 mmol/L (98-107) Carbon Dioxide Level 30 mmol/L (21-32) Anion Gap 7 (6-14) Blood Urea Nitrogen 22 mg/dL (7-20) Creatinine 0.7 mg/dL (0.6-1.0) Estimated GFR (Cockcroft-Gault) 82.7 BUN/Creatinine Ratio 31 (6-20) Glucose Level 80 mg/dL (70-99) Calcium Level 8.8 mg/dL (8.5-10.1) Total Bilirubin 0.3 mg/dL (0.2-1.0) Aspartate Amino Transf (AST/SGOT) 12 U/L (15-37) Alanine Aminotransferase (ALT/SGPT) 15 U/L (14-59) Alkaline Phosphatase 116 U/L (46-116) Total Protein 6.7 g/dL (6.4-8.2) Albumin 3.1 g/dL (3.4-5.0) Albumin/Globulin Ratio 0.9 (1.0-1.7) Medications Current Medications Oxycodone/ Acetaminophen (Percocet 5/325) 1 tab 1X ONCE PO Last administered on 07/30/19at 06:19; Start 07/30/19 at 06:30; Stop 07/30/19 at 06:31; Status DC Oxycodone/ Acetaminophen (Percocet 5/325) 1 tab 1X ONCE PO Last administered on 07/30/19at 11:11; Start 07/30/19 at 11:00; Stop 07/30/19 at 11:01; Status DC Oxycodone/ Acetaminophen (Percocet 10/325) 1 tab QID PO Last administered on 08/01/19 09:17; Start 07/30/19 at 18:49 Aspirin (Children'S Aspirin) 81 mg DAILY PO Last administered on 08/01/19 09:17; Start 07/31/19 at 09:00 Divalproex Sodium (Depakote) 500 mg HS PO Last administered on 07/31/19at 20:41; Start 07/30/19 at 21:00 Hydrochlorothiazide (Hydrodiuril) 25 mg DAILY PO Last administered on 08/01/19 09:17; Start 07/31/19 at 09:00 Non-Formulary Medication (Amoxicillin ) 1 cap TID PO ; Start 07/30/19 at 21:00; Stop 07/30/19 at 19:13; Status DC Non-Formulary Medication (Amoxicillin ) 1 tab BID PO ; Start 07/30/19 at 21:00; Stop 07/30/19 at 19:13; Status DC Latanoprost (Xalatan) 1 drop QHS OU Last administered on 07/31/19at 20:41; Start 07/30/19 at 21:00 Non-Formulary Medication (Doxycycline Hyclate ) 1 cap BID PO ; Start 07/30/19 at 21:00; Stop 07/30/19 at 19:13; Status DC Pantoprazole Sodium (Protonix) 40 mg DAILYAC PO Last administered on 08/01/19at 09:17; Start 07/31/19 at 07:30 Meloxicam (Mobic) 15 mg PRN DAILY PRN PO INFLAMMATION Last administered on 07/31/19 14:17; Start 07/31/19 at 09:00 Metoprolol Tartrate (Lopressor) 25 mg BID PO ; Start 07/31/19 at 09:00; Stop 07/30/19 at 21:25; Status DC Nortriptyline HCl (Pamelor) 50 mg QHS PO ; Start 07/30/19 at 21:00; Stop 07/30/19 at 21:23; Status DC Oxycodone HCl (Roxicodone) 15 mg PRN QID PRN PO PAIN; Start 07/30/19 at 18:45; Stop 07/30/19 at 18:50; Status DC Duloxetine HCl (Cymbalta) 30 mg DAILY PO Last administered on 08/01/19at 09:17; Start 07/31/19 at 09:00 Polyethylene Glycol (miraLAX PACKET) 17 gm TID PO Last administered on 08/01/19 09:17; Start 07/30/19 at 22:00 Propranolol HCl (Inderal) 40 mg BID PO Last administered on 08/01/19at 09:17; Start 07/30/19 at 22:00 Tizanidine HCl (Zanaflex) 2 mg HS PO Last administered on 07/31/19at 20:41; Start 07/30/19 at 22:00; Stop 08/01/19 at 08:24; Status DC Lidocaine (Lidoderm) 1 patch DAILY TD Last administered on 08/01/19at 09:17; Start 07/31/19 at 14:30 Miscellaneous (Lidoderm Patch Removal) 1 ea QHS MC Last administered on 07/31/19at 22:04; Start 07/31/19 at 21:00 Sodium Chloride (Normal Saline Flush) 3 ml QSHIFT PRN IV AFTER MEDS AND BLOOD DRAWS; Start 07/31/19 at 13:45 Sodium Chloride 1,000 ml @ 100 mls/hr Q10H IV Last administered on 08/01/19at 02:00; Start 07/31/19 at 14:30; Stop 08/01/19 at 08:24; Status DC Ondansetron HCl (Zofran) 4 mg PRN Q4HRS PRN IV NAUSEA/VOMITING; Start 07/31/19 at 13:45 Acetaminophen (Tylenol) 650 mg PRN Q4HRS PRN PO TEMP OVER 100.4F OR MILD PAIN; Start 07/31/19 at 13:45 Al Hydroxide/Mg Hydroxide (Mylanta Plus Xs) 30 ml PRN DAILY PRN PO HEARTBURN / GAS; Start 07/31/19 at 13:45 Clonidine HCl (Catapres) 0.1 mg PRN Q6HRS PRN PO SBP>160 OR DBP>90; Start 07/31/19 at 13:45 Docusate Sodium (Colace) 100 mg PRN BID PRN PO CONSTIPATION; Start 07/31/19 at 13:45 Albuterol Sulfate (Ventolin Neb Soln) 2.5 mg PRN Q4HRS PRN NEB SHORTNESS OF BREATH; Start 07/31/19 at 13:45 Guaifenesin (Robitussin) 200 mg PRN Q4HRS PRN PO COUGH; Start 07/31/19 at 13:45 Lorazepam (Ativan) 0.5 mg PRN Q4HRS PRN PO ANXIETY / AGITATION; Start 07/31/19 at 13:45 Hydromorphone HCl (Dilaudid) 1 mg PRN Q2HRS PRN IV SEVERE PAIN 7-10 Last administered on 08/01/19at 04:54; Start 07/31/19 at 13:45 Enoxaparin Sodium (Lovenox 40mg Syringe) 40 mg DAILY SQ Last administered on 08/01/19at 09:17; Start 08/01/19 at 09:00 Ceftriaxone Sodium (Rocephin) 1 gm Q24H IVP ; Start 07/31/19 at 15:00; Stop 07/31/19 at 16:06; Status DC Active Scripts Active Lidocaine PATCH (Lidocaine) 1 Each Adh..patch 1 Patch TD DAILY Percocet 10-325 Mg Tablet (Oxycodone/Acetaminophen) 1 Each Tablet 1 Tab PO 6- 8HRS Reported Miralax (Polyethylene Glycol 3350) 17 Gm Powd.pack 1 Packet PO TID Cymbalta (Duloxetine Hcl) 30 Mg Capsule.dr 30 Mg PO DAILY Propranolol Hcl 40 Mg Tablet 1 Tab PO BID Aspirin 81 Mg Tab.chew 1 Tab PO DAILY Depakote (Divalproex Sodium) 500 Mg Tablet.dr 500 Mg PO HS Lumigan (Bimatoprost) 2.5 Ml Drops 1 Drop EACHEYE QHS Hydrochlorothiazide Tablet (Hydrochlorothiazide) 25 Mg Tablet 1 Tab PO DAILY Mobic (Meloxicam) 15 Mg Tablet 1 Tab PO PRN DAILY Vitals/I & O Vital Sign - Last 24 Hours 07/31/19 07/31/19 07/31/19 07/31/19 11:00 14:21 14:24 15:00 Temp 97.9 98.2 97.9 98.2 Pulse 63 63 Resp 16 20 20 18 B/P (MAP) 101/54 (70) 112/50 (70) Pulse Ox 96 93 93 95 O2 Delivery Room Air Room Air Room Air Room Air 07/31/19 07/31/19 07/31/19 07/31/19 16:07 16:58 19:00 20:00 Temp 98.2 98.2 Pulse 64 Resp 19 18 B/P (MAP) 108/55 (72) Pulse Ox 95 94 93 O2 Delivery Room Air Room Air Room Air Room Air 07/31/19 07/31/19 07/31/19 07/31/19 20:36 20:41 20:41 22:04 Pulse 64 B/P (MAP) 108/55 Pulse Ox 93 93 93 O2 Delivery Room Air Room Air Room Air 07/31/19 08/01/19 08/01/19 08/01/19 23:00 03:05 04:54 05:26 Temp 97.7 98.0 97.7 98.0 Pulse 61 65 Resp 18 18 B/P (MAP) 79/44 (56) 112/59 (76) Pulse Ox 94 96 96 96 O2 Delivery Room Air Room Air Room Air Room Air 08/01/19 08/01/19 08/01/19 07:00 09:17 09:17 Temp 98.0 98.0 Pulse 68 68 Resp 16 19 B/P (MAP) 111/56 (74) 111/56 Pulse Ox 91 93 O2 Delivery Room Air Room Air Intake and Output 07/31/19 07/31/19 08/01/19 14:59 22:59 06:59 Intake Total 120 ml Balance 120 ml GARY LOPEZ MD Aug 01, 2019 09:32
[2019-08-01 11:00] VITALS: BP 156/81
--- NOTE | 2019-08-01 11:52 | NUR ---
ROCEPHIN DISCONTINUED BY DR.A KAY ON 07/31/19, CONSULT FOR DR. Marcin KAY CANCELLED BY DR. LOPEZ THIS SHIFT, PER DR. Marcin KAY REQUEST, THIS [employer] WILL NOTIFY DR. LOPEZ TO FIND OUT IF SHE WANTS TO RESTART IV ROCEPHIN.
[2019-08-01] MEDS: CELECOXIB 100 MG CAPSULE. PO SCH ×2 (12:39→20:50)
[2019-08-01 15:00] VITALS: BP 145/61
[2019-08-01] MEDS: LORazepam 0.5 MG TABLET PO PRN ×2 (15:09→20:54)
--- NOTE | 2019-08-01 17:27 | PDOC2 ---
NEUROLOGY CONSULT Date of Admission Date of Admission Full Report Dictated Patient is a 69-year-old woman with chronic neck and back pain who presented after an overdose and Zanaflex. She is followed by Dr. Wood for migraine headache and has been maintained on Depakote. She reports 10 headache days per month. She had surgery of her lumbar spine in June 2016 which made her pain worse. She had cervical spine surgery in April 2018 which was complicated by infection. She has difficulty with walking due to pain. She has chronic lower back pain. Some of this radiates down the back of her legs. She is working with a surgeon at [facility], Dr. Capone with whom she is to meet to discuss surgical options. She reports extensive investigation leading up to this meeting. It would not make sense to try to repeat investigation at this facility but rather she keep her appointment. She could certainly consider Botox injections with Dr. Wood but it might make more sense to use an injectable CGRP as it may be quicker onset and more effective. She can also contact Dr. Wood for an injectable. DATE: 08/01/19 TIME: 17:27 Current Medications Current Medications Current Medications Oxycodone/ Acetaminophen (Percocet 5/325) 1 tab 1X ONCE PO Last administered on 07/30/19at 06:19; Start 07/30/19 at 06:30; Stop 07/30/19 at 06:31; Status DC Oxycodone/ Acetaminophen (Percocet 5/325) 1 tab 1X ONCE PO Last administered on 07/30/19at 11:11; Start 07/30/19 at 11:00; Stop 07/30/19 at 11:01; Status DC Oxycodone/ Acetaminophen (Percocet 10/325) 1 tab QID PO Last administered on 08/01/19at 16:59; Start 07/30/19 at 18:49 Aspirin (Children'S Aspirin) 81 mg DAILY PO Last administered on 08/01/19at 09:17; Start 07/31/19 at 09:00 Divalproex Sodium (Depakote) 500 mg HS PO Last administered on 07/31/19at 20:41; Start 07/30/19 at 21:00 Hydrochlorothiazide (Hydrodiuril) 25 mg DAILY PO Last administered on 08/01/19at 09:17; Start 07/31/19 at 09:00 Non-Formulary Medication (Amoxicillin ) 1 cap TID PO ; Start 07/30/19 at 21:00; Stop 07/30/19 at 19:13; Status DC Non-Formulary Medication (Amoxicillin ) 1 tab BID PO ; Start 07/30/19 at 21:00; Stop 07/30/19 at 19:13; Status DC Latanoprost (Xalatan) 1 drop QHS OU Last administered on 07/31/19at 20:41; Start 07/30/19 at 21:00 Non-Formulary Medication (Doxycycline Hyclate ) 1 cap BID PO ; Start 07/30/19 at 21:00; Stop 07/30/19 at 19:13; Status DC Pantoprazole Sodium (Protonix) 40 mg DAILYAC PO Last administered on 08/01/19at 09:17; Start 07/31/19 at 07:30 Meloxicam (Mobic) 15 mg PRN DAILY PRN PO INFLAMMATION Last administered on 07/31/19at 14:17; Start 07/31/19 at 09:00 Metoprolol Tartrate (Lopressor) 25 mg BID PO ; Start 07/31/19 at 09:00; Stop 07/30/19 at 21:25; Status DC Nortriptyline HCl (Pamelor) 50 mg QHS PO ; Start 07/30/19 at 21:00; Stop 07/30/19 at 21:23; Status DC Oxycodone HCl (Roxicodone) 15 mg PRN QID PRN PO PAIN; Start 07/30/19 at 18:45; Stop 07/30/19 at 18:50; Status DC Duloxetine HCl (Cymbalta) 30 mg DAILY PO Last administered on 08/01/19at 09:17; Start 07/31/19 at 09:00 Polyethylene Glycol (miraLAX PACKET) 17 gm TID PO Last administered on 08/01/19at 15:09; Start 07/30/19 at 22:00 Propranolol HCl (Inderal) 40 mg BID PO Last administered on 08/01/19at 09:17; Start 07/30/19 at 22:00 Tizanidine HCl (Zanaflex) 2 mg HS PO Last administered on 07/31/19at 20:41; Start 07/30/19 at 22:00; Stop 08/01/19 at 08:24; Status DC Lidocaine (Lidoderm) 1 patch DAILY TD Last administered on 08/01/19at 09:17; Start 07/31/19 at 14:30 Miscellaneous (Lidoderm Patch Removal) 1 ea QHS MC Last administered on 07/31/19at 22:04; Start 07/31/19 at 21:00 Sodium Chloride (Normal Saline Flush) 3 ml QSHIFT PRN IV AFTER MEDS AND BLOOD DRAWS; Start 07/31/19 at 13:45 Sodium Chloride 1,000 ml @ 100 mls/hr Q10H IV Last administered on 08/01/19at 02:00; Start 07/31/19 at 14:30; Stop 08/01/19 at 08:24; Status DC Ondansetron HCl (Zofran) 4 mg PRN Q4HRS PRN IV NAUSEA/VOMITING; Start 07/31/19 at 13:45 Acetaminophen (Tylenol) 650 mg PRN Q4HRS PRN PO TEMP OVER 100.4F OR MILD PAIN; Start 07/31/19 at 13:45 Al Hydroxide/Mg Hydroxide (Mylanta Plus Xs) 30 ml PRN DAILY PRN PO HEARTBURN / GAS; Start 07/31/19 at 13:45 Clonidine HCl (Catapres) 0.1 mg PRN Q6HRS PRN PO SBP>160 OR DBP>90; Start 07/31/19 at 13:45 Docusate Sodium (Colace) 100 mg PRN BID PRN PO CONSTIPATION; Start 07/31/19 at 13:45 Albuterol Sulfate (Ventolin Neb Soln) 2.5 mg PRN Q4HRS PRN NEB SHORTNESS OF BREATH; Start 07/31/19 at 13:45 Guaifenesin (Robitussin) 200 mg PRN Q4HRS PRN PO COUGH; Start 07/31/19 at 13:45 Lorazepam (Ativan) 0.5 mg PRN Q4HRS PRN PO ANXIETY / AGITATION Last administered on 08/01/19at 15:09; Start 07/31/19 at 13:45 Hydromorphone HCl (Dilaudid) 1 mg PRN Q2HRS PRN IV SEVERE PAIN 7-10 Last administered on 08/01/19at 04:54; Start 9/14/19 at 13:45 Enoxaparin Sodium (Lovenox 40mg Syringe) 40 mg DAILY SQ Last administered on 08/01/19at 09:17; Start 08/01/19 at 09:00; Stop 08/01/19 at 09:34; Status DC Ceftriaxone Sodium (Rocephin) 1 gm Q24H IVP ; Start 07/31/19 at 15:00; Stop 07/31/19 at 16:06; Status DC Celecoxib (CeleBREX) 100 mg BID PO Last administered on 08/01/19at 12:40; Start 08/01/19 at 10:00 Active Scripts Active Lidocaine PATCH (Lidocaine) 1 Each Adh..patch 1 Patch TD DAILY Percocet 10-325 Mg Tablet (Oxycodone/Acetaminophen) 1 Each Tablet 1 Tab PO 6- 8HRS Reported Miralax (Polyethylene Glycol 3350) 17 Gm Powd.pack 1 Packet PO TID Cymbalta (Duloxetine Hcl) 30 Mg Capsule.dr 30 Mg PO DAILY Propranolol Hcl 40 Mg Tablet 1 Tab PO BID Aspirin 81 Mg Tab.chew 1 Tab PO DAILY Depakote (Divalproex Sodium) 500 Mg Tablet.dr 500 Mg PO HS Lumigan (Bimatoprost) 2.5 Ml Drops 1 Drop EACHEYE QHS Hydrochlorothiazide Tablet (Hydrochlorothiazide) 25 Mg Tablet 1 Tab PO DAILY Mobic (Meloxicam) 15 Mg Tablet 1 Tab PO PRN DAILY Allergies Allergies: Coded Allergies: No Known Drug Allergies (Unverified , 07/30/19) Vitals VITALS Vital Signs Date Time Temp Pulse Resp B/P (MAP) Pulse Ox O2 Delivery O2 Flow Rate FiO2 08/01/19 16:59 19 94 Room Air 08/01/19 15:00 98.0 74 145/61 (89) 98.0 Labs Labs Laboratory Tests Test 07/31/19 02:00 07/31/19 15:28 08/01/19 07:45 Thyroid Stimulating Hormone (TSH) 1.504 uIU/mL (0.358-3.74) Erythrocyte Sedimentation Rate 34 (0-25) White Blood Count 7.6 x10^3/uL (4.0-11.0) Red Blood Count 3.61 x10^6/uL (3.50-5.40) Hemoglobin 11.8 g/dL (12.0-15.5) Hematocrit 35.0 % (36.0-47.0) Mean Corpuscular Volume 97 fL (79-100) Mean Corpuscular Hemoglobin 33 pg (25-35) Mean Corpuscular Hemoglobin Concent 34 g/dL (31-37) Red Cell Distribution Width 14.1 % (11.5-14.5) Platelet Count 379 x10^3/uL (140-400) Neutrophils (%) (Auto) 66 % (31-73) Lymphocytes (%) (Auto) 24 % (24-48) Monocytes (%) (Auto) 7 % (0-9) Eosinophils (%) (Auto) 2 % (0-3) Basophils (%) (Auto) 1 % (0-3) Neutrophils # (Auto) 5.0 x10^3/uL (1.8-7.7) Lymphocytes # (Auto) 1.8 x10^3/uL (1.0-4.8) Monocytes # (Auto) 0.6 x10^3/uL (0.0-1.1) Eosinophils # (Auto) 0.1 x10^3/uL (0.0-0.7) Basophils # (Auto) 0.1 x10^3/uL (0.0-0.2) Sodium Level 147 mmol/L (136-145) Potassium Level 4.0 mmol/L (3.5-5.1) Chloride Level 110 mmol/L (98-107) Carbon Dioxide Level 30 mmol/L (21-32) Anion Gap 7 (6-14) Blood Urea Nitrogen 22 mg/dL (7-20) Creatinine 0.7 mg/dL (0.6-1.0) Estimated GFR (Cockcroft-Gault) 82.7 BUN/Creatinine Ratio 31 (6-20) Glucose Level 80 mg/dL (70-99) Calcium Level 8.8 mg/dL (8.5-10.1) Total Bilirubin 0.3 mg/dL (0.2-1.0) Aspartate Amino Transf (AST/SGOT) 12 U/L (15-37) Alanine Aminotransferase (ALT/SGPT) 15 U/L (14-59) Alkaline Phosphatase 116 U/L (46-116) Total Protein 6.7 g/dL (6.4-8.2) Albumin 3.1 g/dL (3.4-5.0) Albumin/Globulin Ratio 0.9 (1.0-1.7) Laboratory Tests Test 08/01/19 07:45 White Blood Count 7.6 x10^3/uL (4.0-11.0) Red Blood Count 3.61 x10^6/uL (3.50-5.40) Hemoglobin 11.8 g/dL (12.0-15.5) Hematocrit 35.0 % (36.0-47.0) Mean Corpuscular Volume 97 fL (79-100) Mean Corpuscular Hemoglobin 33 pg (25-35) Mean Corpuscular Hemoglobin Concent 34 g/dL (31-37) Red Cell Distribution Width 14.1 % (11.5-14.5) Platelet Count 379 x10^3/uL (140-400) Neutrophils (%) (Auto) 66 % (31-73) Lymphocytes (%) (Auto) 24 % (24-48) Monocytes (%) (Auto) 7 % (0-9) Eosinophils (%) (Auto) 2 % (0-3) Basophils (%) (Auto) 1 % (0-3) Neutrophils # (Auto) 5.0 x10^3/uL (1.8-7.7) Lymphocytes # (Auto) 1.8 x10^3/uL (1.0-4.8) Monocytes # (Auto) 0.6 x10^3/uL (0.0-1.1) Eosinophils # (Auto) 0.1 x10^3/uL (0.0-0.7) Basophils # (Auto) 0.1 x10^3/uL (0.0-0.2) Sodium Level 147 mmol/L (136-145) Potassium Level 4.0 mmol/L (3.5-5.1) Chloride Level 110 mmol/L (98-107) Carbon Dioxide Level 30 mmol/L (21-32) Anion Gap 7 (6-14) Blood Urea Nitrogen 22 mg/dL (7-20) Creatinine 0.7 mg/dL (0.6-1.0) Estimated GFR (Cockcroft-Gault) 82.7 BUN/Creatinine Ratio 31 (6-20) Glucose Level 80 mg/dL (70-99) Calcium Level 8.8 mg/dL (8.5-10.1) Total Bilirubin 0.3 mg/dL (0.2-1.0) Aspartate Amino Transf (AST/SGOT) 12 U/L (15-37) Alanine Aminotransferase (ALT/SGPT) 15 U/L (14-59) Alkaline Phosphatase 116 U/L (46-116) Total Protein 6.7 g/dL (6.4-8.2) Albumin 3.1 g/dL (3.4-5.0) Albumin/Globulin Ratio 0.9 (1.0-1.7) ARNULFO ARTIS MD Aug 01, 2019 17:27
[2019-08-01 19:00] VITALS: BP 94/48
[2019-08-01] MEDS: PATCH REMOVAL. MC SCH (20:49)
[2019-08-01] MEDS: DIVALPROEX DELAYED RELEASE 500 MG TABLET.DR. PO SCH (20:50)
[2019-08-01] MEDS: LATANOPROST 0.005% OPHTH SOLUTION 2.5ML BOTTLE. OU SCH (20:54)
[2019-08-01 23:00] VITALS: BP 120/60
--- NOTE | 2019-08-02 00:15 | CONS ---
DATE OF CONSULTATION: 08/01/2019 REFERRING PHYSICIAN: Dr. Paul Coon. REASON FOR CONSULTATION: Intractable back pain and headache. HISTORY OF PRESENT ILLNESS: The patient is a 69-year-old woman admitted to [facility] when she took an overdose of Zanaflex. She only took about 6 pills because her pain has been so intractable she wanted to end her life and be out of pain. She realized it probably was not going to cause her serious harm. She underwent back surgery in 06/2016. Subsequent to this, lower back surgery. She has had worsening pain. She feels there is pain that radiates down her legs as well as numbness. She works with Dr. Thacker for headache as well as pain. She has followed him for years. He has her on Depakote as a headache preventative but she estimates about 10 headache days per month. At one point, he had mentioned the possibility of Botox injections, but she has never pursued this possibility. It sounds as if she has also never worked with the pain clinic to consider pain procedures such as radiofrequency, rhizotomy or other such procedures that might help her lower back pain. She has had difficulty walking ever since she underwent a cervical spine surgery in 04/2018. 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 She reports initially being paralyzed and then ultimately going to [facility] where they told her to walk once again. Subsequent to this, her balance has always been off and she has been at risk for falling. PAST MEDICAL HISTORY: 1. Hypertension. 2. Migraine headache. 3. Spinal surgery in both cervical and lumbar spines. 4. Cervical spine surgery complicated by infection. 5. Carpal tunnel release surgery. 6. Dysphagia. 7. Depression. ALLERGIES: No known allergies to drugs. MEDICATIONS PRIOR TO ADMISSION: Aspirin 81 mg, Lumigan ophthalmic, Depakote 500 mg extended release, duloxetine 30 mg, hydrochlorothiazide, lidocaine patch, meloxicam 15 mg, oxycodone/acetaminophen every 6 hours as needed, MiraLax up to 3 times a day, propranolol 40 mg twice per day and Zanaflex, although this has since been discontinued. FAMILY HISTORY: Pertinent for diabetes. SOCIAL HISTORY: She does not smoke tobacco, drink alcohol or use recreational drugs. REVIEW OF SYSTEMS: She complains of headache. She does not have visual or hearing changes, although sometimes she said she does not hear as well out of her left ear. She denies trouble with swallowing. She has neck pain. She has shoulder pain. She has diffuse joint pain. She has pain of her lower back. She does not complain of shortness of breath or chest pain. She does have complaints of numbness in her feet and legs. She does not complain of extra bruising, bleeding or swelling. She does have psychiatric issues with anxiety and depression. PHYSICAL EXAMINATION: VITAL SIGNS: The blood pressure was 145/61, pulse 74, respirations 14, temperature 98 degrees Celsius. Oximetry was 94% on room air. Her weight was 67.1 kg, height 63 inches with a calculated body mass index of 26.2. GENERAL: She was alert, awake and cooperative. Speech was fluent and clear. She had a good fund of recent and remote knowledge. She seemed to want to give me all of her history including all the paperwork that she had and wanted me to review everything that has ever been done and hoping that I would come up with the answer right now that would solve her back pain. During the exam, she often would grab the joint that we were testing because of pain. She seemed to exhibit a great deal of pain behavior. She was well oriented. She appeared well groomed and well nourished. NEUROLOGIC: Examination of the cranial nerves revealed visual hansen were full to confrontation. Extraocular movements were intact. The eyes were conjugate. Pursuit movements were smooth and saccadic eye movements were without dysmetria. Facial sensation was intact. The muscles of mastication and facial expression were powerful symmetrically. Hearing was intact to finger rub. The palate arched symmetrically and the tongue was midline with full range of motion. Sternocleidomastoid and trapezius were powerful. Muscle bulk and tone was normal. There was no arm drift or abnormal movement. There was no leg drift. She had difficulty relaxing her legs, but I do not think she actually had a spastic catch. Power was full and symmetric in the upper and lower extremities. Reflexes 2+/4 in the upper extremities and 3+ at the knees, absent at both ankles. Knee reflexes were extremely brisk. The toes were not upgoing. Coordination testing with [id number], rqjt-[id number]-bolk, fine motor and rapid alternating movements were fairly well performed. The sensory exam was intact to pain, light touch, proprioception, graphesthesia, cold thermal and vibration. There was no extinction to double simultaneous stimulation. I watched her walk with the aide. She seemed to struggle due to back pain. She walked with a walker and appeared to have decent balance. REVIEW OF LABORATORY DATA: CBC revealed a normal white blood cell count and platelet count. The hemoglobin was low at 11.8, hematocrit low at 35. Sedimentation rate was slightly elevated at 34. Chemistries revealed sodium elevated at 147 and normal potassium. Chloride was elevated to 110 and CO2 was normal. BUN was elevated at 22 and creatinine 0.7 with a GFR that calculated at 82.7. Glucose, calcium, total bilirubin were normal. Liver enzymes were not elevated. TSH was normal. Urine drug screen was positive for opiates, which she has prescribed. Salicylate was not detected nor Tylenol or acetaminophen detected. Alcohol was not detected. Urinalysis revealed trace ketones and a small amount of bilirubin and a small amount of leukocyte esterase and 5-10 white cells and a few squamous epithelial cells and moderate bacteria. Spine flexion and extension x-rays were performed of the cervical spine revealing postoperative findings, normal alignment and no suspicious acute lesion. Lumbar spine x-rays were performed and revealed postoperative findings, but no acute process. There was spinal fusion at L4-L5. Vertebral heights are unremarkable except L4-L5 was somewhat less than expected. Osteopenia was noted. There were facet joint degenerative changes noted. IMPRESSION: The patient is a 69-year-old woman with chronic back pain and failed back syndrome. She underwent surgery 2 years ago for the lumbar spine, which did not relieve her pain. She has also had cervical spine surgery last year, which was complicated by infection and may have provoked a myelopathy. She does have hyperreflexia at the knees, which could be a consequence of a myelopathy, although she does not have upgoing toes. She does have loss of ankle reflex, which could be a consequence of her previous back surgery. She does not actually have any loss of sensation in her arms or legs. She does not have any significant loss of power as she seems to have maintained very good power. She reports that she has seen a surgeon at by the name of Ze, who has done testing including MRIs and is going to be with her to discuss surgery. At this point, it seems unnecessary to repeat MRI since they have apparently recently been done at [facility] and she already has a plan in place to try to address her lower back pain. I am afraid I am not going to have an answer for her that will suddenly give her the reason why she has pain that will suddenly take it away. Her approach is that there is going to be a physician out there that will be miraculous and certainly take away all of her pain, which is likely not to occur. With respect to the headache, I would recommend trying a calcitonin gene related peptide injection before trying Botox injections as this would be more fast onset and should be efficacious. She can connect with Dr. Thacker to consider initiating this class of drugs. ARNULFO ARTIS MD DR: ALBERT/eladio JOB#: [id number] / [id number]
[2019-08-02 03:41] VITALS: BP 101/83
--- NOTE | 2019-08-02 06:22 | EKG ---
[facility] [address] [place] [address] Test Date: 2019-07-30 Test Time: 02:20:36 Pat Name: YAIMA LEMOS Department: Room: 4 1 Gender: F Director Recreation: : 1950 Requested By: VITOR ELIZABETH Order Number: [id number] Reading MD: Measurements Intervals Newton Rate: 61 P: 42 GA: 150 QRS: 24 QRSD: 86 T: 41 QT: 436 QTc: 444 Interpretive Statements SINUS RHYTHM NON SPECIFIC T ABNORMALITY BORDERLINE ECG No previous ECG available for comparison
[2019-08-02 07:00] VITALS: BP 131/75
[2019-08-02] MEDS: hydroCHLOROthiazide 25 MG TABLET PO SCH (08:27)
[2019-08-02] MEDS: DULoxetine HCL 30 MG CAPSULE.DR PO SCH (08:28)
[2019-08-02] MEDS: PANTOPRAZOLE 40 MG TABLET.DR. PO SCH (08:28)
[2019-08-02] MEDS: ASPIRIN CHEWABLE 81 MG TABLET. PO SCH (08:28)
[2019-08-02] MEDS: CELECOXIB 100 MG CAPSULE. PO SCH (08:28)
[2019-08-02] MEDS: PROPRANOLOL 40 MG TABLET. PO SCH (08:28)
[2019-08-02] MEDS: LIDOCAINE (700MG/PATCH) PATCH. TD SCH (08:29)
[2019-08-02] MEDS: oxyCODONE/APAP 10/325 1 TAB TABLET PO SCH ×2 (08:29→14:51)
[2019-08-02] MEDS: POLYETHYLENE GLYCOL 3350 17 GM PACKET. PO SCH ×2 (09:00→14:00)
--- NOTE | 2019-08-02 10:21 | PDOC ---
PROGRESS NOTES Assessment Problems Medical Problems: (1) Chronic pain Status: Acute (2) Depression Status: Acute (3) Drug overdose, intentional Status: Acute (4) Suicidal ideation Status: Acute Tizanidine overdose I follow her in my clinic for chronic migraines, has been fairly stable on propanolol, Depakote, nortriptyline, and PRN Excedrin, she has not been interested in Botox, CGRP self-injection dedications, or other preventative medications.Since I last saw her, nortriptyline was switched to Cymbalta, but she still feels depressed on this Chronic neck and back pain, status-post interior cervical discectomy and fusion with several misadventures after, also status-post lumbar spine surgery, all at Plan Follow-up with her psychiatrist Follow up with her neurosurgeons at Follow-up with me as scheduled. Subjective Denies suicidality Objective Vital Signs Date Time Temp Pulse Resp B/P (MAP) Pulse Ox O2 Delivery O2 Flow Rate FiO2 08/02/19 08:30 72 131/75 08/02/19 07:00 98.0 18 95 Room Air 98.0 Intake and Output 08/02/19 06:59 # Voids 3 PHYSICAL EXAM Alert. Oriented to time, place and person. PERRL. EOMI. CN: no focal findings. Muscle tone: normal. Muscle strength: 5/5 DTR: 2+ Plantar reflex: flexor Gait: arthritic. Sensory exam: no abnormal findings. No cerebellar signs elicited. Review of Relevant I have reviewed the following items madiha (where applicable) has been applied. Labs Laboratory Tests Test 07/31/19 15:28 08/01/19 07:45 Erythrocyte Sedimentation Rate 34 (0-25) White Blood Count 7.6 x10^3/uL (4.0-11.0) Red Blood Count 3.61 x10^6/uL (3.50-5.40) Hemoglobin 11.8 g/dL (12.0-15.5) Hematocrit 35.0 % (36.0-47.0) Mean Corpuscular Volume 97 fL (79-100) Mean Corpuscular Hemoglobin 33 pg (25-35) Mean Corpuscular Hemoglobin Concent 34 g/dL (31-37) Red Cell Distribution Width 14.1 % (11.5-14.5) Platelet Count 379 x10^3/uL (140-400) Neutrophils (%) (Auto) 66 % (31-73) Lymphocytes (%) (Auto) 24 % (24-48) Monocytes (%) (Auto) 7 % (0-9) Eosinophils (%) (Auto) 2 % (0-3) Basophils (%) (Auto) 1 % (0-3) Neutrophils # (Auto) 5.0 x10^3/uL (1.8-7.7) Lymphocytes # (Auto) 1.8 x10^3/uL (1.0-4.8) Monocytes # (Auto) 0.6 x10^3/uL (0.0-1.1) Eosinophils # (Auto) 0.1 x10^3/uL (0.0-0.7) Basophils # (Auto) 0.1 x10^3/uL (0.0-0.2) Sodium Level 147 mmol/L (136-145) Potassium Level 4.0 mmol/L (3.5-5.1) Chloride Level 110 mmol/L (98-107) Carbon Dioxide Level 30 mmol/L (21-32) Anion Gap 7 (6-14) Blood Urea Nitrogen 22 mg/dL (7-20) Creatinine 0.7 mg/dL (0.6-1.0) Estimated GFR (Cockcroft-Gault) 82.7 BUN/Creatinine Ratio 31 (6-20) Glucose Level 80 mg/dL (70-99) Calcium Level 8.8 mg/dL (8.5-10.1) Total Bilirubin 0.3 mg/dL (0.2-1.0) Aspartate Amino Transf (AST/SGOT) 12 U/L (15-37) Alanine Aminotransferase (ALT/SGPT) 15 U/L (14-59) Alkaline Phosphatase 116 U/L (46-116) Total Protein 6.7 g/dL (6.4-8.2) Albumin 3.1 g/dL (3.4-5.0) Albumin/Globulin Ratio 0.9 (1.0-1.7) Medications Current Medications Oxycodone/ Acetaminophen (Percocet 5/325) 1 tab 1X ONCE PO Last administered on 07/30/19at 06:19; Start 07/30/19 at 06:30; Stop 07/30/19 at 06:31; Status DC Oxycodone/ Acetaminophen (Percocet 5/325) 1 tab 1X ONCE PO Last administered on 07/30/19at 11:11; Start 07/30/19 at 11:00; Stop 07/30/19 at 11:01; Status DC Oxycodone/ Acetaminophen (Percocet 10/325) 1 tab QID PO Last administered on 08/02/19at 08:30; Start 07/30/19 at 18:49 Aspirin (Children'S Aspirin) 81 mg DAILY PO Last administered on 08/02/19at 08:30; Start 07/31/19 at 09:00 Divalproex Sodium (Depakote) 500 mg HS PO Last administered on 08/01/19at 20:54; Start 07/30/19 at 21:00 Hydrochlorothiazide (Hydrodiuril) 25 mg DAILY PO Last administered on 08/02/19at 08:30; Start 07/31/19 at 09:00 Non-Formulary Medication (Amoxicillin ) 1 cap TID PO ; Start 07/30/19 at 21:00; Stop 07/30/19 at 19:13; Status DC Non-Formulary Medication (Amoxicillin ) 1 tab BID PO ; Start 07/30/19 at 21:00; Stop 07/30/19 at 19:13; Status DC Latanoprost (Xalatan) 1 drop QHS OU Last administered on 08/01/19at 20:54; Start 07/30/19 at 21:00 Non-Formulary Medication (Doxycycline Hyclate ) 1 cap BID PO ; Start 07/30/19 at 21:00; Stop 07/30/19 at 19:13; Status DC Pantoprazole Sodium (Protonix) 40 mg DAILYAC PO Last administered on 08/02/19at 08:30; Start 07/31/19 at 07:30 Meloxicam (Mobic) 15 mg PRN DAILY PRN PO INFLAMMATION Last administered on 07/31/19at 14:17; Start 07/31/19 at 09:00 Metoprolol Tartrate (Lopressor) 25 mg BID PO ; Start 07/31/19 at 09:00; Stop 07/30/19 at 21:25; Status DC Nortriptyline HCl (Pamelor) 50 mg QHS PO ; Start 07/30/19 at 21:00; Stop 07/30/19 at 21:23; Status DC Oxycodone HCl (Roxicodone) 15 mg PRN QID PRN PO PAIN; Start 07/30/19 at 18:45; Stop 07/30/19 at 18:50; Status DC Duloxetine HCl (Cymbalta) 30 mg DAILY PO Last administered on 08/02/19 08:30; Start 07/31/19 at 09:00 Polyethylene Glycol (miraLAX PACKET) 17 gm TID PO Last administered on 08/01/19 20:54; Start 07/30/19 at 22:00 Propranolol HCl (Inderal) 40 mg BID PO Last administered on 08/02/19 08:30; Start 07/30/19 at 22:00 Tizanidine HCl (Zanaflex) 2 mg HS PO Last administered on 07/31/19 20:41; Start 07/30/19 at 22:00; Stop 08/01/19 at 08:24; Status DC Lidocaine (Lidoderm) 1 patch DAILY TD Last administered on 08/02/19 08:30; Start 07/31/19 at 14:30 Miscellaneous (Lidoderm Patch Removal) 1 ea QHS MC Last administered on 08/01/19 20:54; Start 07/31/19 at 21:00 Sodium Chloride (Normal Saline Flush) 3 ml QSHIFT PRN IV AFTER MEDS AND BLOOD DRAWS; Start 07/31/19 at 13:45 Sodium Chloride 1,000 ml @ 100 mls/hr Q10H IV Last administered on 08/01/19at 02:00; Start 07/31/19 at 14:30; Stop 08/01/19 at 08:24; Status DC Ondansetron HCl (Zofran) 4 mg PRN Q4HRS PRN IV NAUSEA/VOMITING; Start 07/31/19 at 13:45 Acetaminophen (Tylenol) 650 mg PRN Q4HRS PRN PO TEMP OVER 100.4F OR MILD PAIN; Start 07/31/19 at 13:45 Al Hydroxide/Mg Hydroxide (Mylanta Plus Xs) 30 ml PRN DAILY PRN PO HEARTBURN / GAS; Start 07/31/19 at 13:45 Clonidine HCl (Catapres) 0.1 mg PRN Q6HRS PRN PO SBP>160 OR DBP>90; Start 07/31/19 at 13:45 Docusate Sodium (Colace) 100 mg PRN BID PRN PO CONSTIPATION; Start 07/31/19 at 13:45 Albuterol Sulfate (Ventolin Neb Soln) 2.5 mg PRN Q4HRS PRN NEB SHORTNESS OF BREATH; Start 07/31/19 at 13:45 Guaifenesin (Robitussin) 200 mg PRN Q4HRS PRN PO COUGH; Start 07/31/19 at 13:45 Lorazepam (Ativan) 0.5 mg PRN Q4HRS PRN PO ANXIETY / AGITATION Last administered on 08/01/19at 20:54; Start 07/31/19 at 13:45 Hydromorphone HCl (Dilaudid) 1 mg PRN Q2HRS PRN IV SEVERE PAIN 7-10 Last administered on 08/01/19at 04:54; Start 07/31/19 at 13:45 Enoxaparin Sodium (Lovenox 40mg Syringe) 40 mg DAILY SQ Last administered on 08/01/19at 09:17; Start 08/01/19 at 09:00; Stop 08/01/19 at 09:34; Status DC Ceftriaxone Sodium (Rocephin) 1 gm Q24H IVP ; Start 07/31/19 at 15:00; Stop 07/31/19 at 16:06; Status DC Celecoxib (CeleBREX) 100 mg BID PO Last administered on 08/02/19at 08:30; Start 08/01/19 at 10:00 Active Scripts Active Lidocaine PATCH (Lidocaine) 1 Each Adh..patch 1 Patch TD DAILY Percocet 10-325 Mg Tablet (Oxycodone/Acetaminophen) 1 Each Tablet 1 Tab PO 6- 8HRS Reported Miralax (Polyethylene Glycol 3350) 17 Gm Powd.pack 1 Packet PO TID Cymbalta (Duloxetine Hcl) 30 Mg Capsule.dr 30 Mg PO DAILY Propranolol Hcl 40 Mg Tablet 1 Tab PO BID Aspirin 81 Mg Tab.chew 1 Tab PO DAILY Depakote (Divalproex Sodium) 500 Mg Tablet.dr 500 Mg PO HS Lumigan (Bimatoprost) 2.5 Ml Drops 1 Drop EACHEYE QHS Hydrochlorothiazide Tablet (Hydrochlorothiazide) 25 Mg Tablet 1 Tab PO DAILY Mobic (Meloxicam) 15 Mg Tablet 1 Tab PO PRN DAILY Vitals/I & O Vital Sign - Last 24 Hours 08/01/19 08/01/19 08/01/19 08/01/19 11:00 11:51 12:40 15:00 Temp 98.5 98.0 98.5 98.0 Pulse 83 74 Resp 14 B/P (MAP) 156/81 (106) 145/61 (89) Pulse Ox 94 93 94 94 O2 Delivery Room Air Room Air Room Air Room Air 08/01/19 08/01/19 08/01/19 08/01/19 15:05 16:59 19:00 19:47 Temp 97.8 97.8 Pulse 67 Resp 19 18 16 B/P (MAP) 94/48 (63) Pulse Ox 93 94 94 94 O2 Delivery Room Air Room Air Room Air Room Air 08/01/19 08/01/19 08/01/19 08/01/19 20:05 20:54 20:56 22:06 Pulse 67 Resp 18 16 B/P (MAP) 94/48 Pulse Ox 94 94 O2 Delivery Room Air Room Air Room Air 08/01/19 08/02/19 08/02/19 08/02/19 23:00 03:41 07:00 08:30 Temp 98.0 99.1 98.0 98.0 99.1 98.0 Pulse 69 75 72 72 Resp 18 20 18 B/P (MAP) 120/60 (80) 101/83 (89) 131/75 (93) 131/75 Pulse Ox 95 95 95 O2 Delivery Room Air Room Air Room Air CANELO MERCADO MD Aug 02, 2019 10:21
[2019-08-02 10:50] VITALS: BP 110/55
--- NOTE | 2019-08-02 10:50 | PDOC3 ---
Discharge Summary Visit Information Date of Admission: Jul 30, 2019 Date of Discharge: Aug 02, 2019 Admitting Diagnosis Comment: Depression with ingestion of Zanaflex. chronic pain syndrome gait instability HIGH FALL RISK L4-5 there is severe central stenosis from a combination of facet arthropathy and disc protrusion. 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 s/p neck surgery with fusion on 04/27/2018. 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 Marked soft tissue swelling and edema are seen within the prevertebral soft tissues. 2018 Final Diagnosis Problems Medical Problems: (1) Chronic pain Status: Acute (2) Depression Status: Acute (3) Drug overdose, intentional Status: Acute (4) Suicidal ideation Status: Acute Brief Hospital Course Allergies Allergies Coded Allergies Type Severity Reaction Last Updated Verified No Known Drug Allergies 07/30/19 No Vital Signs Vital Signs Date Time Temp Pulse Resp B/P (MAP) Pulse Ox O2 Delivery O2 Flow Rate FiO2 08/02/19 08:30 72 131/75 08/02/19 07:00 98.0 18 95 Room Air 98.0 Lab Results Laboratory Tests Test 07/31/19 15:28 08/01/19 07:45 Erythrocyte Sedimentation Rate 34 (0-25) White Blood Count 7.6 x10^3/uL (4.0-11.0) Red Blood Count 3.61 x10^6/uL (3.50-5.40) Hemoglobin 11.8 g/dL (12.0-15.5) Hematocrit 35.0 % (36.0-47.0) Mean Corpuscular Volume 97 fL (79-100) Mean Corpuscular Hemoglobin 33 pg (25-35) Mean Corpuscular Hemoglobin Concent 34 g/dL (31-37) Red Cell Distribution Width 14.1 % (11.5-14.5) Platelet Count 379 x10^3/uL (140-400) Neutrophils (%) (Auto) 66 % (31-73) Lymphocytes (%) (Auto) 24 % (24-48) Monocytes (%) (Auto) 7 % (0-9) Eosinophils (%) (Auto) 2 % (0-3) Basophils (%) (Auto) 1 % (0-3) Neutrophils # (Auto) 5.0 x10^3/uL (1.8-7.7) Lymphocytes # (Auto) 1.8 x10^3/uL (1.0-4.8) Monocytes # (Auto) 0.6 x10^3/uL (0.0-1.1) Eosinophils # (Auto) 0.1 x10^3/uL (0.0-0.7) Basophils # (Auto) 0.1 x10^3/uL (0.0-0.2) Sodium Level 147 mmol/L (136-145) Potassium Level 4.0 mmol/L (3.5-5.1) Chloride Level 110 mmol/L (98-107) Carbon Dioxide Level 30 mmol/L (21-32) Anion Gap 7 (6-14) Blood Urea Nitrogen 22 mg/dL (7-20) Creatinine 0.7 mg/dL (0.6-1.0) Estimated GFR (Cockcroft-Gault) 82.7 BUN/Creatinine Ratio 31 (6-20) Glucose Level 80 mg/dL (70-99) Calcium Level 8.8 mg/dL (8.5-10.1) Total Bilirubin 0.3 mg/dL (0.2-1.0) Aspartate Amino Transf (AST/SGOT) 12 U/L (15-37) Alanine Aminotransferase (ALT/SGPT) 15 U/L (14-59) Alkaline Phosphatase 116 U/L (46-116) Total Protein 6.7 g/dL (6.4-8.2) Albumin 3.1 g/dL (3.4-5.0) Albumin/Globulin Ratio 0.9 (1.0-1.7) Brief Hospital Course Ms. Walsh is a 69 old female who took 6 zanaflexes bec of severe back pain, she was so depressed to have it under control, no SI HX back sx, also follows with pain clinic< LS fexion and extension films show normal post op alignment. Physiatry has signed off, PAin mx, will see as OP< I am rxing lidoderm patch and pain meds and advised OTC bowel regimen, She is not SI, cleared byPAT team Consults; physiatry, pain mx, PAT DispO; Home with HH Rx on chart Pt seen and examined Discharge Information Condition at Discharge: Improved, Stable Disposition/Orders: D/C to Home w/ HH Scheduled Aspirin (Aspirin) 81 Mg Tab.chew, 1 TAB PO DAILY, #30 Ref 3 (Reported) Entered as Reported by: MILLY HERNANDEZ on 06/01/18538 Last Action: Reviewed on 07/30/192005 by JESUS LIN Bimatoprost (Lumigan) 2.5 Ml Drops, 1 DROP EACHEYE QHS, #7.5 Ref 3 (Reported) Entered as Reported by: MILLY HERNANDEZ on 06/01/18538 Last Action: Reviewed on 07/30/192005 by JESUS LIN Divalproex Sodium (Depakote) 500 Mg Tablet.dr, 500 MG PO HS, (Reported) Entered as Reported by: MILLY HERNANDEZ on 06/01/18538 Last Action: Reviewed on 07/30/192005 by JESUS LIN Duloxetine Hcl (Cymbalta) 30 Mg Capsule.dr, 30 MG PO DAILY for nerve pain , (Reported) Entered as Reported by: JESUS LIN on 07/30/192005 Last Action: Continued on 07/30/192120 by JESUS LIN Hydrochlorothiazide (Hydrochlorothiazide Tablet ) 25 Mg Tablet, 1 TAB PO DAILY, #30 Ref 5 (Reported) Entered as Reported by: MILLY HERNANDEZ on 06/01/18538 Last Action: Reviewed on 07/30/192005 by JESUS LIN Lidocaine (Lidocaine PATCH ) 1 Each Adh..patch, 1 PATCH TD DAILY for back apin, #14 Prescribed by: GARY LOPEZ on 08/01/19 0826 Meloxicam (Mobic) 15 Mg Tablet, 1 TAB PO PRN DAILY, #30 Ref 1 (Reported) Entered as Reported by: EASTON GREEN on 11/03/14 1123 Last Action: Reviewed on 07/30/192005 by JESUS LIN Oxycodone/Apap 10-325 (Percocet 10-325 Mg Tablet ) 1 Each Tablet, 1 TAB PO 6- 8hrs for pain, #20 Ref 0 Prescribed by: GARY LOPEZ on 08/01/19 0826 Polyethylene Glycol 3350 (Miralax) 17 Gm Powd.pack, 1 PACKET PO TID for stool softener, #30 Ref 3 (Reported) Entered as Reported by: JESUS LIN on 07/30/192005 Last Action: Continued on 07/30/192120 by JESUS LIN Propranolol Hcl (Propranolol Hcl) 40 Mg Tablet, 1 TAB PO BID for htn, #60 Ref 5 (Reported) Entered as Reported by: JESUS LIN on 07/30/192005 Last Action: Continued on 07/30/192120 by JESUS LIN Discontinued Medications Doxycycline Hyclate (Doxycycline Hyclate) 100 Mg Capsule, 1 CAP PO BID, #14 (Reported) Entered as Reported by: MILLY HERNANDEZ on 06/01/18 0539 Last Action: Discontinued on 07/30/192145 by JESUS LIN Lansoprazole (Prevacid) 30 Mg Capsule.dr, 30 MG PO DAILY, (Reported) Entered as Reported by: MILLIE BRISCOE on 01/19/1437 Last Action: Discontinued on 07/30/192145 by JESUS LIN Nadolol (Nadolol) 20 Mg Tablet, 20 MG PO DAILY, (Reported) Entered as Reported by: MILLIE BRISCOE on 01/19/14 0936 Last Action: Discontinued on 07/30/192145 by JESUS LIN Nortriptyline Hcl (Nortriptyline Hcl) 50 Mg Capsule, 50 MG PO QHS, (Reported) Entered as Reported by: PAPI KNOWLES RP on 06/01/18 1130 Last Action: Discontinued on 07/30/192145 by JESUS LIN Oxycodone Hcl (Oxycodone Hcl Immed.release) 15 Mg Tablet, 1 TAB PO QID PRN for PAIN, #120 (Reported) Entered as Reported by: MILLY HERNANDEZ on 06/01/18 0539 Last Action: Discontinued on 07/30/192145 by JESUS LIN Oxycodone Hcl/Acetaminophen (Oxycodon-Acetaminophen 7.5-325) 1 Each Tablet, 1 EACH PO Q4HRS PRN, (Reported) Entered as Reported by: MILLIE BRISCOE on 01/19/14 0938 Last Action: Discontinued on 07/30/192145 by JESUS LIN Tizanidine Hcl (Tizanidine Hcl) 4 Mg Tablet, 2 MG PO HS for muscle relaxant, (Reported) Entered as Reported by: JESUS LIN on 07/30/192005 Last Action: Continued on 07/30/192120 by GARY NAVA MD Aug 02, 2019 10:50
--- NOTE | 2019-08-02 11:26 | NUR ---
SANDY consulted for HH set up. Spoke with pt and she does not have a preference. SANDY phoned and faxed orders to [facility] and Rikki orders to [facility]. Awaiting to hear if order for walker is approved. D/w JIE. Addendum: 08/02/19 at 1344 by ECHO DELGADO Orders for walker approved, and [facility] will deliver it to pt's home tomorrow. Addendum: 08/02/19 at 1403 by [facility]CHO [facility] Pt does not have her house fu. Per RN, Awaiting on family members to return phone call.
--- NOTE | 2019-08-02 15:37 | NUR ---
pt discharged home with daughter Soco. meds and follow up reviewed. pt and daughter provided with a copy of the safety plan signed by patient. suicide hotline information provided. pt stable upon dc.
--- NOTE | 2019-08-03 02:37 | CONS ---
DATE OF CONSULTATION: 08/02/2019 ATTENDING PHYSICIAN: Dr. Paul Coon. REASON FOR CONSULTATION: The patient was seen at the request of Dr. Coon for rehab evaluation. HISTORY OF PRESENT ILLNESS: This is a 69-year-old right-handed female who took Zanaflex. She had been depressed because of her back pain. She had lumbar spine surgery done in the past. The pain got worse afterwards. She had cervical spine surgery done last year, got infected, had another surgery. The patient admits mainly lower back pain. She is being followed at [facility]. She had been taking oxycodone. The patient admits weakness. She denies any trouble with her bowel or bladder control. The patient also with known hypertension and migraine episode for which she is being followed by Dr. Wood. Also, had carpal tunnel surgery. The patient had family history of diabetes mellitus. The patient is not known allergic to any medication. The patient apparently took 6 of Zanaflex pills. The patient had back surgery in 06/2016. She had been on Depakote for headaches. She apparently gets headaches 10 times per month. At one point, she considered Botox injections, never pursued it. She had injections to her neck and back prior to the surgeries. The patient had been to inpatient rehab at [facility]. PHYSICAL EXAMINATION: Physical examination today revealed she is alert, oriented to place and person, follows commands appropriately, moves all 4 extremities voluntarily where she had 4+/5 grade muscle strength. Deep tendon reflexes are exaggerated at both knees, absent at both ankles. The patient had diffuse tenderness to palpation over lumbar spine area. No paraspinal muscle spasm was noted at this time. She had pain-free range of motion of her cervical spine. She seemed to have equal perception of touch and pinprick sensation bilaterally. Mild crepitus on range of motion of her knee joint. Pain-free range of motion of her hip joints. She is independent with bed mobility, transfers and up walking with a roller walker without any loss of balance. ASSESSMENT: An elderly female with chronic lower back pain, status post lumbar spine surgery without any clinical evidence of ongoing lumbar radiculopathy, also chronic headache. The patient is status post cervical spine surgery complicated by infection requiring further surgery. The patient also had clinical evidence of peripheral neuropathy. RECOMMENDATIONS: I agreed with the plan for home with outpatient followup in the pain clinic or at [facility]. I have reviewed with her a home program of physical modalities and stretching exercises and proper body mechanics. She may benefit from a lumbar corset for use while up. Dr. Coon, I appreciate asking me to participate in the care of this interesting patient. I will be glad to see her for followup with you on an as-needed basis. MARI SCHWARZ MD DR: MANISH/eladio JOB#: [id number] / [id number]
== END 2019-08-02 16:13 | disposition home or self-care (01) | DRG 918 ==
LOC: ER 01:30 → ED HOLD 17:11 → 5 SOUTH 19:35
PROVIDERS: ADMIT Internal Medicine; ATTEND Internal Medicine
DX: T42.8X2A Poisoning by antiparkinsonism drugs and other central muscle-tone depressants, intentional self-harm, initial encounter (principal); R45.851 Suicidal ideations; M46.90 Unspecified inflammatory spondylopathy, site unspecified; Z91.81 History of falling; G89.4 Chronic pain syndrome; M48.061 Spinal stenosis, lumbar region without neurogenic claudication; F32.9 Major depressive disorder, single episode, unspecified; G43.909 Migraine, unspecified, not intractable, without status migrainosus; G62.9 Polyneuropathy, unspecified; I10 Essential (primary) hypertension; M48.02 Spinal stenosis, cervical region; M48.04 Spinal stenosis, thoracic region; M51.26 Other intervertebral disc displacement, lumbar region; Z79.899 Other long term (current) drug therapy; Z83.3 Family history of diabetes mellitus; Z98.1 Arthrodesis status; Z79.82 Long term (current) use of aspirin; Y92.89 Other specified places as the place of occurrence of the external cause
CPT/HCPCS: 36415; 72052; 72110; 80053; 80307; 80329; 81001; 84443; 85025; 85651; 87086; 87186; 93005; G0480; J1170; J1650; J7030; 97110; 97116; 97535; 99285-25; G0378

== ENCOUNTER 2021-04-19 14:40 | Emergency (ER) | payer MEDICAID ==
[~2021-04-19] VITALS: Ht 160 cm; Wt 72.7 kg
[~2021-04-19 14:40] MED LIST changes: +DULO30CA2 PO; +LIDO700A21 TD; -NADO20TA PO; +NADO20TA2 PO; -OXYC15TA PO; +OXYC15TA3 PO; +OXYC1TAB22 PO; +POLY17PO29 PO; +TIZA4TAB2 PO
[2021-04-19 14:50] VITALS: BP 166/98
[2021-04-19] MEDS ORDERED: oxyCODONE/APAP 10/325 1 TAB TABLET PO ONE (15:15)
--- NOTE | 2021-04-19 15:25 | PHYS DOC ---
Past Medical History Past Medical History: Hypertension, Migraines, Other Additional Past Medical Histor: RA,SPINAL STENOSIS,CARPEL TUNNEL,CERVICALGIA,DYSHAGIA Past Surgical History: Other Additional Past Surgical Histo: BACK Smoking Status: Never Smoker Alcohol Use: None Drug Use: None General Adult EDM: Chief Complaint: BACK PAIN OR INJURY HPI: HPI: Patient is a 71 year old female who presents to the ED today complaining of 10 out of 10 bilateral low back pain chronic in nature. Patient denies any injuries. Reports pain radiates to bilateral lower extremities with weakness to bilateral lower extremities which is chronic. She states she is scheduled to have back surgery on April 27, 2021. She was given prescription for oxycodone by her on back doctor. Medicine was written on April 09, 2020 for 69 tablets. Patient has finished the pain medicine sooner than the expected date. She states she has been taking 1-1/2 tablets every 8 hours instead of 1 tablet every 8 hours. Review of Systems: Review of Systems: Constitutional: Denies fever or chills. [] GI: Denies abdominal pain, nausea, vomiting, bloody stools or diarrhea. [] : Denies dysuria. [] Musculoskeletal: Reports low back pain Integument: Denies rash. [] Neurologic: Denies headache, focal weakness or sensory changes. [] Psychiatric: Denies depression or anxiety. [] Heart Score: C/O Chest Pain: N/A Risk Factors: Risk Factors: DM, Current or recent (<one month) smoker, HTN, HLP, family history of CAD, obesity. Risk Scores: Score 0 - 3: 2.5% MACE over next 6 weeks - Discharge Home Score 4 - 6: 20.3% MACE over next 6 weeks - Admit for Clinical Observation Score 7 - 10: 72.7% MACE over next 6 weeks - Early Invasive Strategies Current Medications: Current Medications Medications (Trade) Dose Ordered Sig/Alisha Start Time Stop Time Status Last Admin Dose Admin Oxycodone/ Acetaminophen (Percocet 10/325) 1 tab 1X ONCE 04/19/21 15:15 04/19/21 15:16 DC 04/19/21 15:17 1 TAB Allergies: Allergies: Allergies Coded Allergies Type Severity Reaction Last Updated Verified No Known Drug Allergies 07/30/19 No Physical Exam: PE: Constitutional: Well developed, well nourished, no acute distress, non-toxic appearance. [] Skin: Warm, dry, no erythema, no rash. [] Back: No tenderness, no CVA tenderness. [] Extremities: Diffuse paraspinal muscle tenderness of bilateral lumbar spine, no midline tenderness, no cyanosis, no clubbing, ROM intact, no edema. [] Neurologic: Alert and oriented X 3, normal motor function, normal sensory function, no focal deficits noted. [] Psychologic: Affect normal, judgement normal, mood normal. [] Current Patient Data: Vital Signs: Vital Signs Date Time Temp Pulse Resp B/P (MAP) Pulse Ox O2 Delivery O2 Flow Rate FiO2 04/19/21 15:17 18 94 Room Air 04/19/21 14:50 98.1 105 166/98 (120) 98.1 EKG: EKG: [] Radiology/Procedures: Radiology/Procedures: [] Course & Med Decision Making: Course & Med Decision Making Pertinent Labs and Imaging studies reviewed. (See chart for details) This is a 71-year-old female patient presented to the ED today complaining of chronic low back pain. Patient has finished her oxycodone sooner than the expected date. Informed her we will not refill her oxycodone. She was given a dose of pain medicine in the ED. She has a scheduled back surgery on 04/27/2021. Brandan Disclaimer: Brandan Disclaimer: This electronic medical record was generated, in whole or in part, using a voice recognition dictation system. Departure Departure Impression: Primary Impression: Chronic low back pain Qualified Codes: M54.42 - Lumbago with sciatica, left side; M54.41 - Lumbago with sciatica, right side; G89.29 - Other chronic pain Disposition: 01 HOME / SELF CARE / HOMELESS Condition: STABLE Referrals: NO PCP (PCP) Follow-up with your own back doctor Patient Instructions: Back Pain, Adult, [id number] Additional Instructions: Please follow-up with your own back doctor for oxycodone refills/pain medicine. You can take [id number] pain relievers as needed. JOSE LEVY APRN Apr 19, 2021 15:25
== END 2021-04-19 15:36 | disposition home or self-care (01) ==
LOC: ER 14:40
DX: M54.42 Lumbago with sciatica, left side (principal); M54.41 Lumbago with sciatica, right side; G89.29 Other chronic pain; I10 Essential (primary) hypertension; G43.909 Migraine, unspecified, not intractable, without status migrainosus
CPT/HCPCS: 99284

== ENCOUNTER → 2021-11-05 | Outpatient (CLI) | payer MEDICAID ==
[~2021-11-05] MED LIST changes: -DOXY100C2 PO; +DOXY100C3 PO; +IOHEXOL 180 MG/ML 10 ML VIAL. IT ONE; +LIDOCAINE 1% Multi-Dose 20 ML VIAL. ID ONE; +TIZA-75 PO; -TIZA4TAB2 PO
--- NOTE | 2021-11-05 11:33 | KCIC ---
Procedure: CR LUMBAR MYELOGRAM Indication: Lumbar fusion. Lumbar radiculopathy. Technique: The patient was informed of the risks of the procedure. All questions were answered. Patient signed a written consent form for the myelogram. The patient was placed in a prone position on the fluoroscopy table. External site of the lower back was prepped and draped in the usual sterile fashion. Betadine was utilized for cleansing solution and 1% lidocaine for local anesthesia. A 22-gauge spinal needle was advanced through the L4-L5 level upon which there was return of blood-ti nged CSF with the blood likely iatrogenic from needle passage through dense scar tissue. Approximatel y 13 cc of Omnipaque 180 was injected during fluoroscopic surveillance. The needle was removed. The patient was then transferred to the CT department for CT examination of the lumbar spine. The patient tolerated the procedure well with no immediate complication. Fluoroscopy time: 58 seconds Number of images: 2 Impression: Technically successful fluoroscopic guided lumbar myelogram. See the separate CT report for a full de scription of degenerative findings. Electronically signed by: KATINA HERNANDEZ MD (11/05/2021 11:31 AM) [id number]
--- NOTE | 2021-11-05 13:47 | KCIC ---
Study: CT lumbar spine with contrast - CT myelography INDICATION: Lumbar fusion. Lumbar radiculopathy. COMPARISON: Correlation is made to the most recent available cross-sectional comparison which is an M RI of the lumbar spine from 05/19/2014 TECHNIQUE: Axial CT imaging of the lumbar spine performed after the intrathecal injection of contrast . The injection portion of the exam is detailed separately. One or more of the following individualized dose reduction techniques were utilized for this examinat ion: 1. Automated exposure control 2. Adjustment of the mA and/or kV according to patient size 3. Use of iterative reconstruction technique. FINDINGS: Dorsal jude and screw fixation construct spanning L3-L5 with associated dorsal decompression. Transver se stabilization jude at L3-L4. Interbody spacers at L3-L4 and L4-L5. The hardware is intact. Well fix ated pedicle screws. Solid osseous fusion across the L4-L5 disc space. No readily apparent bony bridg ing across the L3-L4 disc space. Mild endplate concavity around the interbody spacer at the upper asp ect of L4 slightly more so than the lower aspect of L3. Well-positioned bilateral L3 and L4 pedicle s crews and right L5 pedicle screw. The left L5 pedicle screw extends along the inferior and medial cor katty of the associated pedicle and partly along the roof of the left L5-S1 neural foramen but essentia lly unchanged from the 2019 radiographs considering differences in technique. Noting osteopenia and artifact from the hardware, no fracture cleft is identified at the operative le vels. Maintained height of the vertebral bodies above L3. Straightening of lumbar lordosis. Chronic g rade 1 anterolisthesis of L4 on L5 again with fusion across these vertebral bodies. Millimetric retro listhesis of L3 on L4 and L1 on L2. Mild discogenic arthrosis above the operative levels without disc space collapse. Minimal vacuum phenomenon at L1-L2 and L2-L3. Vacuum phenomenon at L5-S1 without dis c space narrowing. The conus medullaris terminates at L1-L2. No abnormal clumping of the cauda equina nerve roots. Scattered calcific atherosclerosis. Partially imaged exophytic cystic focus off the posterior left ki dney measuring simple density. Colonic diverticuli. Soft tissue sequela of prior surgery dorsally. No prevertebral edema/fluid collection. Mild/moderate arthrosis of both sacroiliac joints. No CT eviden ce for a sacral insufficiency fracture. T12-L1: Minimal disc bulge which is partially mineralized. Moderate right slightly more so than left facet arthrosis. Patent central canal and neural foramina. L1-L2: Mild disc bulge which is partially mineralized. Trace L1 on L2 retrolisthesis. Severe facet ar throsis. Partially mineralized ligamentum flavum hypertrophy. Moderate central canal stenosis with a mid sagittal dimension of 7 mm. No significant lateral recess stenosis. Mild right and moderate left neural foraminal stenosis. L2-L3: Mild generalized disc bulge which is faintly mineralized. Severe right and moderate left facet arthrosis. Partially mineralized ligamentum flavum hypertrophy. No significant central canal stenosi s with a nominal mid sagittal dimension of 10 mm. Patent neural foramina and lateral recesses. L3-L4: Operative level. Mild residual disc bulge eccentric to the right. Mild endplate osteophytic ri dging. Degenerative/postoperative facet hypertrophy on the right. There does appear to be a component of osseous fusion across the right L3-L4 facet joint. Dorsal decompression eccentric to the left. Mi ld irregularity of the left lateral aspect of the thecal sac likely from postoperative scarring. The central canal remains patent with a nominal mid sagittal dimension of just over 10 mm. Poorly delinea sara left lateral recess likely from scar tissue. The right lateral recess is patent. No osseous neura l foraminal encroachment on the left and minimal on the right. L4-L5: Operative level. Solid osseous fusion across the dorsolateral fusion mass. Dorsally, there is left eccentric chronic osseous proliferation associated with the fused vertebral bodies which bridges with the left L4-L5 facet joint, image 12 series 603. The fused facets are hypertrophic, left more s o than right. Deformity of the ventral thecal sac above the level of the disc space but the central c anal is patent. Osseous hypertrophy deforms the left lateral recess. The right lateral recess is [place] nt. Moderate/severe left osseous neural foraminal stenosis and mild/moderate on the right. L5-S1: Severe right more so than left facet arthrosis. Degenerative widening of the left facet joint with surrounding cystic change. Mild disc bulge and endplate osteophytic ridging. The central canal i s patent. Mild/moderate right lateral recess stenosis. The left lateral recess is patent. Moderate/se zeynep bilateral neural foraminal stenosis proximally. IMPRESSION: 1. Dorsal decompression and posterior instrumented fusion from L3 through L5. The hardware is intact and pedicle screws well fixated. Interbody spacer at L3-L4 without solid osseous bridging across the disc space and with mild endplate concavity and sclerosis around the spacer. No comparison studies a re available to determine if this represents mild subsidence. There does appear to be a component of fusion across the right dorsolateral fusion mass at this level. Solid interbody fusion and bony bridg ing across the dorsolateral fusion mass at L4-L5. 2. Multilevel, multifactorial degenerative changes as outlined on a level by level basis in the abov e report. Moderate central canal stenosis at L1-L2 with a mid sagittal dimension of 7 mm. No signific ant canal stenosis elsewhere. Moderate/severe osseous neural foraminal stenosis on the left at L4-L5 secondary to chronic osseous proliferation extending between the fused disc space and ipsilateral fac et joint. Moderate/severe stenosis at the proximal aspect of the right and left L5-S1 neural neural f oramina in the setting of advanced facet arthrosis. Electronically signed by: KATINA HERNANDEZ MD (11/05/2021 1:44 PM) [id number]
== END | disposition home or self-care (01) ==
LOC: KCIC 08:36
PROVIDERS: ATTEND Neurological Surgery
DX: M54.16 Radiculopathy, lumbar region (principal); M48.061 Spinal stenosis, lumbar region without neurogenic claudication; I10 Essential (primary) hypertension; K21.9 Gastro-esophageal reflux disease without esophagitis; M06.9 Rheumatoid arthritis, unspecified; F41.9 Anxiety disorder, unspecified; F32.9 Major depressive disorder, single episode, unspecified; Z79.82 Long term (current) use of aspirin; Z79.899 Other long term (current) drug therapy; Z98.890 Other specified postprocedural states
CPT/HCPCS: 62304; 72132; J3490; Q9965